=== PATIENT | female | born 1990 | race African-American/Black ===

== ENCOUNTER 2017-07-10 07:04 | Emergency (ER) | payer SELFPAY ==
[2017-07-10 07:57] LABS: Bilirubin Negative (Negative); Blood, Urine Trace (Negative); Glucose, Urine (Dipstick) Negative (Negative); Ketone, Urine Negative (Negative); Nitrite Negative (Negative); Protein, Urine (Dipstick) Negative (Neg-Trace); Urobilinogen 0.2 mg/dL (0.2-1.0)
[2017-07-10 08:00] LABS: Bacteria/HPF Rare-Few HPF (None Seen); Hyaline Casts/LPF 4-6 HYALINE CAST LPF (0-3 Hyaline); WBC/HPF 21-50 HPF (0-3)
--- NOTE | 2017-07-10 09:10 | ULT ---
COMPLETE OBSTETRICAL ULTRASOUND: INDICATION: History of pelvic pain. FINDINGS: There is a single live intrauterine gestation in vertex presentation. Cardiac activity is noted at 33 b.p.m. FERAIN appears within normal limits. The placenta is posterior in location without evidence of previa. Limited visualization of the survey appeared within normal limits. The kidneys, stomach, diaphragm, bladder, and cord insertion appear within normal limits. The average gestation age by ultrasound is 14 weeks and 5 days, estimated due date of 01/03/13. This corresponds to the cl inical age of 14 weeks and 3 days and estimated due date of 01/05/18. IMPRESSION: 1. Single live intrauterine gestation with size and dates as above. 2. Followup examination in 2-3 weeks is recommended for full survey. POS: [facility]
== END 2017-07-10 09:17 | disposition home or self-care (01) ==
LOC: ERS 07:04
DX: O99.611 Diseases of the digestive system complicating pregnancy, first trimester (principal); K21.9 Gastro-esophageal reflux disease without esophagitis; O99.89 Other specified diseases and conditions complicating pregnancy, childbirth and the puerperium; R82.71 Bacteriuria; O99.011 Anemia complicating pregnancy, first trimester; O99.281 Endocrine, nutritional and metabolic diseases complicating pregnancy, first trimester; E05.90 Thyrotoxicosis, unspecified without thyrotoxic crisis or storm; Z87.891 Personal history of nicotine dependence; Z3A.14 14 weeks gestation of pregnancy
CPT/HCPCS: 36415; 76805; 81003; 81015; 81025; 84702; 87086

== ENCOUNTER 2017-07-17 15:52 | Emergency (ER) | payer MEDICAID ==
[2017-07-17] MEDS ORDERED: Ondansetron ODT 4 MG TAB ONE (16:16)
[2017-07-17] MEDS ORDERED: Metoclopramide HCl 10 MG/2 ML VIAL ONE (16:59)
[2017-07-17] MEDS ORDERED: Acetaminophen 500 MG TAB ONE (17:27)
== END 2017-07-17 18:41 | disposition home or self-care (01) ==
LOC: ERS 15:52
DX: O21.0 Mild hyperemesis gravidarum (principal); O99.282 Endocrine, nutritional and metabolic diseases complicating pregnancy, second trimester; Z3A.15 15 weeks gestation of pregnancy
CPT/HCPCS: 96365; 99283; J2765; Q0162

== ENCOUNTER 2017-07-17 21:44 | Emergency (ER) | payer MEDICAID | END 2017-07-17 22:38 | disposition home or self-care (01) | LOC: ERS 21:44 | DX: O21.9 Vomiting of pregnancy, unspecified (principal); E05.90 Thyrotoxicosis, unspecified without thyrotoxic crisis or storm; O99.282 Endocrine, nutritional and metabolic diseases complicating pregnancy, second trimester; Z87.891 Personal history of nicotine dependence; Z79.899 Other long term (current) drug therapy; Z3A.15 15 weeks gestation of pregnancy ==

== ENCOUNTER 2017-07-27 22:22 | Emergency (ER) | payer MEDICAID, OTHER ==
[2017-07-28] MEDS ORDERED: Acetaminophen 500 MG TAB ONE (00:47)
--- NOTE | 2017-07-28 08:09 | RAD ---
RIGHT ANKLE 3 VIEWS: HISTORY: Right foot pain. Injury. COMPARISON: None. FINDINGS: No fracture. No malalignment. Mild medial malleolar edema. IMPRESSION: No acute fracture or malalignment. POS: [facility]
== END 2017-07-28 01:40 | disposition home or self-care (01) ==
LOC: ERS 22:22
DX: O9A.212 Injury, poisoning and certain other consequences of external causes complicating pregnancy, second trimester (principal); S93.402A Sprain of unspecified ligament of left ankle, initial encounter; O99.282 Endocrine, nutritional and metabolic diseases complicating pregnancy, second trimester; E05.90 Thyrotoxicosis, unspecified without thyrotoxic crisis or storm; Z3A.17 17 weeks gestation of pregnancy; Z87.891 Personal history of nicotine dependence; X50.1XXA Overexertion from prolonged static or awkward postures, initial encounter

== ENCOUNTER 2017-07-29 08:59 | Emergency (ER) | payer MEDICAID, OTHER ==
[2017-07-29 09:35] LABS: #Eosinphils 0.1 thou/uL (0.0-0.7); #Lymphocytes 2.2 thou/uL (1.20-3.40); #Monocytes 0.7 thou/uL (0.11-0.59); #Neutrophils 10.6 thou/uL (1.40-6.50); %Basophils 0.3 % (0.0-1.0); %Eosinophils 0.7 % (0.0-10.0); %Lymphocytes 16.3 % (21.0-51.0); Hematocrit 36.6 % (36.0-47.0); Mean Platelet Volume 7.9 fL (7.4-10.4); Red Blood Cell (RBC) Count 3.97 mill/uL (4.20-5.40); White Blood Cell (WBC) Count 13.7 thou/uL (4.8-10.8)
[2017-07-29 09:53] LABS: ALT (SGPT) 43 U/L (8-55); AST (SGOT) 25 U/L (5-34); Alkaline Phosphatase 50 U/L (40-150); Anion Gap 10 mmol/L (10-20); BUN (Urea Nitrogen) 6 mg/dL (7.0-18.7); Bilirubin, Total 0.5 mg/dL (0.2-1.2); Calc. Creatinine Clearance 0 mL/min (70-130); Calcium 8.8 mg/dL (7.8-10.44); Carbon Dioxide 21 mmol/L (22-29); Chloride 108 mmol/L (98-107); Estimated GFR-MDRD Greater than 90; Globulin 3.3 g/dL (2.4-3.5); Lipase 18 U/L (8-78); Protein, Total 6.5 g/dL (6.0-8.3)
[2017-07-29 10:29] LABS: Bilirubin Negative (Negative); Blood, Urine Trace (Negative); Glucose, Urine (Dipstick) Negative (Negative); Ketone, Urine Negative (Negative); Nitrite Negative (Negative); Protein, Urine (Dipstick) Negative (Neg-Trace)
[2017-07-29 10:31] LABS: Bacteria/HPF None Seen HPF (None Seen); Hyaline Casts/LPF 0-3 HYALINE CAST LPF (0-3 Hyaline); Squamous Epithelial 0-3 HPF (0-3); WBC/HPF 21-50 HPF (0-3)
[2017-07-29 10:45] LABS: Yeast-All Forms None Seen HPF (None Seen)
[2017-07-29] MEDS ORDERED: Lidocaine 1% PF 5 ML VIAL ONE (11:40)
[2017-07-29] MEDS ORDERED: cefTRIAXone\\ROCEPHIN 1 GM VIAL ONE (11:40)
[2017-07-29] MEDS ORDERED: Potassium Chloride 20 MEQ TAB ONE (12:10)
== END 2017-07-29 12:27 | disposition home or self-care (01) ==
LOC: ERS 08:59
DX: O23.42 Unspecified infection of urinary tract in pregnancy, second trimester (principal); O99.282 Endocrine, nutritional and metabolic diseases complicating pregnancy, second trimester; E87.6 Hypokalemia; E05.90 Thyrotoxicosis, unspecified without thyrotoxic crisis or storm; Z87.891 Personal history of nicotine dependence; Z79.899 Other long term (current) drug therapy; Z3A.17 17 weeks gestation of pregnancy
CPT/HCPCS: 36415; 80053; 81003; 81015; 83690; 84702; 85025; 96372; J0696; J2001

== ENCOUNTER 2017-10-13 12:50 | Day surgery (SDC) | payer MEDICAID, OTHER ==
[2017-10-13 13:36] VITALS: BMI 36.0
== END 2017-10-13 15:00 | disposition home or self-care (01) ==
LOC: L&D/OP 12:50
PROVIDERS: ATTEND Emergency Medicine
DX: O99.89 Other specified diseases and conditions complicating pregnancy, childbirth and the puerperium (principal); M54.9 Dorsalgia, unspecified; R10.30 Lower abdominal pain, unspecified; O99.283 Endocrine, nutritional and metabolic diseases complicating pregnancy, third trimester; E05.90 Thyrotoxicosis, unspecified without thyrotoxic crisis or storm; Z3A.28 28 weeks gestation of pregnancy; Z79.899 Other long term (current) drug therapy; Z87.891 Personal history of nicotine dependence
CPT/HCPCS: 99282

== ENCOUNTER 2017-11-15 23:13 | Emergency (ER) | payer OTHER ==
--- NOTE | 2017-11-15 23:58 | RAD ---
PORTABLE CHEST: 11/15/17 HISTORY: Cough. Lung ansari are clear. No infiltrate seen. Heart and mediastinum unremarkable. IMPRESSION: No evidence of acute process. POS: [facility]
[2017-11-16] MEDS ORDERED: Mag-Al 1200 mg/1200 mg/30 ML UDCUP ONE (00:46)
[2017-11-16] MEDS ORDERED: Lidocaine Viscous Sol 2% 15 ml UD Cup ONE (00:46)
[2017-11-16 01:25] LABS: Bilirubin Small (Negative); Blood, Urine Trace (Negative); Clarity CLOUDY (Clear); Glucose, Urine (Dipstick) Negative (Negative); Leukocyte Large (Negative); Nitrite Negative (Negative); Protein, Urine (Dipstick) 30 mg/dL (Neg-Trace); Specific Gravity, Urine 1.016 (1.002-1.036)
[2017-11-16 01:27] LABS: Bacteria/HPF None Seen HPF (None Seen); Squamous Epithelial 0-3 HPF (0-3); WBC/HPF 21-50 HPF (0-3)
[2017-11-16 01:32] LABS: Yeast-AUWi Flag 45.8 (0-25.0)
[2017-11-16 01:35] LABS: Hyaline Casts/LPF 0-3 HYALINE CAST LPF (0-3 Hyaline); RBC/HPF 0-3 HPF (0-3); Trichomonas/HPF 1+ HPF (None Seen)
[2017-11-16 01:36] LABS: Yeast-All Forms None Seen HPF (None Seen)
[2017-11-16] MEDS ORDERED: metroNIDAZOLE 250 MG TAB ONE ×2 (02:15)
[2017-11-16] MEDS ORDERED: metroNIDAZOLE 500 MG TAB PO SCH (02:30)
== END 2017-11-16 02:24 | disposition home or self-care (01) ==
LOC: ERS 23:13
DX: O99.613 Diseases of the digestive system complicating pregnancy, third trimester (principal); K21.9 Gastro-esophageal reflux disease without esophagitis; O21.9 Vomiting of pregnancy, unspecified; O98.313 Other infections with a predominantly sexual mode of transmission complicating pregnancy, third trimester; A59.9 Trichomoniasis, unspecified; O99.283 Endocrine, nutritional and metabolic diseases complicating pregnancy, third trimester; E05.90 Thyrotoxicosis, unspecified without thyrotoxic crisis or storm; Z79.899 Other long term (current) drug therapy; Z3A.32 32 weeks gestation of pregnancy
CPT/HCPCS: 71045; 81003; 81015; 87086; 93005

== ENCOUNTER 2017-11-28 13:37 | Day surgery (SDC) | payer OTHER ==
[2017-11-28 14:14] VITALS: BP 121/82; TEMP 98.2; BMI 34.0
[2017-11-28] MEDS ORDERED: Acetaminophen 500 MG TAB PO SCH (15:15)
[2017-11-28 16:18] LABS: Blood, Urine Large (Negative); Clarity CLOUDY (Clear); Glucose, Urine (Dipstick) Negative (Negative); Protein, Urine (Dipstick) 30 mg/dL (Neg-Trace); Specific Gravity, Urine 1.021 (1.002-1.036); pH, Urine 6.5 (5.0-9.0)
[2017-11-28 16:22] LABS: Bacteria/HPF None Seen HPF (None Seen); RBC/HPF GREATER THAN 50-TNTC HPF (0-3)
[2017-11-28 16:26] LABS: Bilirubin Unable to Interpret (Negative); Leukocyte Small (Negative); Nitrite Negative (Negative); Pathc Cast-AUWi Flag 4.74 (0-2.49)
[2017-11-28 16:37] LABS: Hyaline Casts/LPF 0-3 HYALINE CAST LPF (0-3 Hyaline); Other Casts/LPF None Seen LPF (0-3 Hyaline); Transitional Epithelial 0-3 HPF (0-3)
--- NOTE | 2017-11-28 17:13 | PDOC.LDPN ---
Labor & Delivery Progress Note - Subjective Subjective: other (Vaginal discharge, some spotting. ) - Objective Vital signs reviewed and normal: yes General: NAD, resting Uterine fundus: non tender SVE: visually closed/thick on speculum exam. Other exam findings: Thick whitish discharge in vaginal/cervical area. no CMT,
--- NOTE | 2017-11-28 17:20 | PDOC.LDHP ---
Labor and Delivery H&P Chief complaint: other (vaginal discharge.) HPI: 27 yo at 34+4 by 9 week sono. She is here for vaginal discharge with some bloody wipes. She has no further bleeding. normal movements. She has some back and suprabupic pain. no loss of fluid. no fever or chills. Current gestational age (weeks): 34 (+4) Due date: 01/05/18 Dating criteria: last menstrual period, first trimester ultrasound Grav: 3 Para: 0 (0110) OB History Details: 1. hx of loss of pregancy at 17 and 23 weeks. 2. Short cervix 2.6 cm, s/p betamethasone on 11/13 at 32 weeks. Current complications: none Current medications: pre-meghan vitamins, other (aspirin) Previous surgical history: none Social history: none - Physical Exam Abnormal vital signs: HR 102 initially General: NAD Heart: RRR Lungs: CTAB Abdomen: NTTP (No CVA tenderness) Extremeties: no edema FHT: category 1, variability present [place] contractions every: uterine irritability, +accels, periods of witnessed maternal HR on tracing - Vaginal Exam cm dilated: 0 (Visually closed, thick whitish discharge. no CMT. no lesions) - OB Labs Blood type: O RH: positive Antibody Screen: negative HIV: negative RPR: negative HEPSAg: negative 1 hour GCT: unknown GBS: unknown Urine drug screen: not done Rubella: immune Additional Labs: Recent TSH 0.3, FT4 1.4 - Assessment Lower uterine pelvic pain- With negative VP3, and UA most consistent with dehydration. Exam not consistent with stones with no tenderness to palpation in abdomen or CVA. Patient is feeling better at discharge. Likely some round ligament pain with dehydration. Will dishcarge with plan for lots of oral hydration and tylenol for pain. Recommend patient follows up at [facility] in 2-3 days. Will Follow patients urine culture <Edward Fleming - Last Filed: 11/28/17 18:26> <Adele Lamas - Last Filed: 11/28/17 18:38> Allergies/Adverse Reactions: Allergies Allergy/AdvReac Type Severity Reaction Status Date / Time No Known Allergies Allergy Verified 11/28/17 14:15 Attending Addendum - Attending Addendum Date/Time: 02/21/18 1836 I personally evaluated the patient and discussed the management with Dr. Fleming I agree with the History, Examination, Assessment and Plan documented above with any addition or exceptions noted below- Single episode of spotting while wiping. No abdominal pain. Intermittent back pain. Afebrile VSS. Category 1 FHTs. VP3 negative; no bleeding on SSE. D/c home with precautions. Follow-up @ [facility]. <Adele Lamas - Last Filed: 11/28/17 18:38>
== END 2017-11-28 18:30 | disposition home or self-care (01) ==
LOC: L&D/OP 13:37
PROVIDERS: ATTEND Family Medicine
DX: O99.89 Other specified diseases and conditions complicating pregnancy, childbirth and the puerperium (principal); R10.2 Pelvic and perineal pain; E86.0 Dehydration; Z79.899 Other long term (current) drug therapy; Z3A.34 34 weeks gestation of pregnancy; Z87.59 Personal history of other complications of pregnancy, childbirth and the puerperium
CPT/HCPCS: 51701; 59025; 81001; 87086; 87480; 87510; 87660; 99284

== ENCOUNTER 2017-12-04 16:17 | Inpatient (IN) | payer OTHER ==
[2017-12-04 16:51] VITALS: BMI 33.6
--- NOTE | 2017-12-04 17:26 | PDOC.LDHP ---
Labor and Delivery H&P Chief complaint: other (Elevated BP in clinic, Persistent N/V) HPI: 27 year old at 35.3 wks based on LMP c/w 9.6 wk sono presents secondary to elevated BP in clinic with 2 separate readings of 130/90's. Patient also has persistent N/V which has been present throughout the duration of her . She was initially taking zofran which was not effective, so she was transitioned over to diclegis. She was also recently started on pepcid. Nothing has been very effective. She has lost upwards of 10 pounds during this and is being monitored. Additionally, she has a history of two 2nd trimester IUFD at 17 and 23 weeks. TFTs and APAS work up were negative. Patient denies any vaginal bleeding, vaginal discharge or LOF. She denies headache, right upper quadrant pain, or swelling. Current gestational age (weeks): 35 (35.3) Due date: 01/05/18 Dating criteria: last menstrual period, first trimester ultrasound Grav: 3 Para: 0 OB History Details: 1. Hx 2nd trimester IUFD at 17 and 23 weeks. TFTs and APAS workup negative. 2. Short cervix at 2.6 cm, s/p betamethasone on 11/13 at 32 weeks 3. 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 Normal TFTs and thyroid antibodies Current complications: IUGR (Concern for IUGR) Current medications: pre-meghan vitamins Previous surgical history: none Social history: other (cocaine positive on prior UDS, patient denied cocaine use at that time) - Physical Exam Vital signs reviewed and normal: yes Abnormal vital signs: BP 146/74 General: other (Actively vomiting) Heart: RRR Lungs: nonlabored breathing Abdomen: NTTP Extremeties: no edema FHT: category 1, variability present [place] contractions every: q3 minutes, maternal heart tracing witnessed on strip - OB Labs Blood type: O RH: positive Antibody Screen: negative HIV: negative RPR: negative HEPSAg: negative 1 hour GCT: unknown GBS: unknown Rubella: immune - Assessment Patient presents for evaluation of elevated BP's and persistent N/V. - Plan Plan: observation in L&D -: Elevated BP's without diagnosis of gHTN or preeclampsia - Initiate preeclampsia workup to include CBC, CMP, UA, Urine protein and urine creatinine - No symptoms of preeclampsia at this time - Continue to monitor BP, treat if SBP > 160 Hx of IUFD in 2nd trimester x2 - Thyroid storm after IUFD, TFTs and thyroid antibodies have been normal. [facility] has recommended weekly NST's and BPP'suntil 36 weeks and biweekly NST/BPP thereafter - Will obtain BPP today along with biometry to assess growth - PT/PTT/INR pending Short cervix length - 2.6 cm - s/p betamethasone on 11/13 at 32 weeks Persistent N/V - Patient currently taking diclegis and pepcid - Will give zofran ODT and pepcid - Lipase pending <Jie Hadley - Last Filed: 12/04/17 18:12> <Lopez Conn - Last Filed: 12/04/17 21:11> Allergies/Adverse Reactions: Allergies Allergy/AdvReac Type Severity Reaction Status Date / Time No Known Allergies Allergy Verified 11/28/17 14:15 Attending Addendum - Attending Addendum Date/Time: 12/04/172108 I personally evaluated the patient and discussed the management with Dr. Hadley. I agree with the History, Examination, Assessment and Plan documented above with any addition or exceptions noted below. Elevated bili and LFTs -wide ddx: AFLP, HELLP/preE with severe features (no elevated BPs), GB disease, hepatitis -RUQ sono, hep panel, repeat labs in 6 hours Elevated BP -x1 while vomiting, normal thereafter -await urine studies -UA 9.1 Dehydration -IVFB Will complete workup and consult as appropriate. <Lopez Conn - Last Filed: 12/04/17 21:11>
[2017-12-04] MEDS ORDERED: Ondansetron ODT 8 MG TAB SL PRN (17:39)
[2017-12-04] MEDS ORDERED: Famotidine 20 MG TAB PO SCH (18:15)
[2017-12-04 18:48] LABS: #Lymphocytes 2.6 thou/uL (1.20-3.40); #Monocytes 0.5 thou/uL (0.11-0.59); #Neutrophils 9.1 thou/uL (1.40-6.50); %Basophils 0.1 % (0.0-1.0); %Eosinophils 0.4 % (0.0-10.0); %Lymphocytes 21.4 % (21.0-51.0); %Monocytes 4.1 % (0.0-10.0); Hemoglobin 12.6 g/dL (12.0-16.0); Mean Corpuscular HGB CONC 33.4 g/dL (32.0-36.0); Mean Corpuscular Hemoglobin 29.8 pg (27.0-31.0); Mean Corpuscular Volume 89.3 fl (81.0-99.0); Mean Platelet Volume 8.9 fL (7.4-10.4); Platelet Count 247 thou/uL (130-400); RBC Distribution Width 13.3 % (11.5-14.5); Red Blood Cell (RBC) Count 4.23 mill/uL (4.20-5.40); White Blood Cell (WBC) Count 12.2 thou/uL (4.8-10.8)
[2017-12-04 18:54] LABS: PTT 28.2 SEC (22.9-36.1); Prothrombin Time 13.1 SEC (12.0-14.7)
[2017-12-04 19:11] LABS: ALT (SGPT) 173 U/L (8-55); AST (SGOT) 175 U/L (5-34); Albumin 3.2 g/dL (3.5-5.0); Alkaline Phosphatase 216 U/L (40-150); Anion Gap 17 mmol/L (10-20); BUN (Urea Nitrogen) 7 mg/dL (7.0-18.7); Bilirubin, Total 1.3 mg/dL (0.2-1.2); Calc. Creatinine Clearance 163 mL/min (70-130); Calcium 9.1 mg/dL (7.8-10.44); Carbon Dioxide 26 mmol/L (22-29); Chloride 100 mmol/L (98-107); Estimated GFR-MDRD Greater than 90; Glucose 75 mg/dL (70-105); Protein, Total 7.2 g/dL (6.0-8.3); Sodium 140 mmol/L (136-145); Uric Acid 9.1 mg/dL (2.6-6.0)
[2017-12-04 19:20] LABS: Potassium 2.9 mmol/L (3.5-5.1)
--- NOTE | 2017-12-04 20:08 | ULT ---
OBSTETRIC SONOGRAM SONOGRAPHIC BIOPHYSICAL PROFILE EXAM 12/04/17 HISTORY: Third trimester . Previous spontaneous abortions. Thyroid storm. FINDINGS: Multiple transabdominal sonographic views of the gravid uterus show an intrauterine gestation in ceph alic presentation. The cervix is predominantly obscured by ossification of the cranium. Grade II placenta is posterior and fundal. Advanced age limits anatomic detail. Urinary bladder is we ll distended. Heart motion is demonstrated at 122 beats per minute. Amniotic fluid index is 7.8 with a 3.8 cm pocket in the right upper quadrant. Measurements are as follows: Biparietal diameter 36 weeks, 5 days Head circumference 36 weeks, 2 days Abdominal circumference 33 weeks, 1 day Femur length 34 weeks, 3 days Estimated weight is 2366 grams (5 lb. 3 oz). Good tone and breathing movements and gross movements were demonstrated at sonography. IMPRESSION: 1. Single viable intrauterine gestation with estimated gestational age based on today's sonogram of 35 weeks, 0 days. 2. Sonographic biophysical profile score is 8/8. POS: [facility]
[2017-12-04] MEDS ORDERED: Ondansetron HCl/PF 4 MG/2 ML Vial IVP PRN (20:19)
[2017-12-04] MEDS ORDERED: Promethazine HCl 25 MG/ML VIAL IM PRN (20:19)
--- NOTE | 2017-12-04 20:33 | PDOC.LDPN ---
Labor & Delivery Progress Note - Subjective Subjective: other (N/v. No headache) - Objective Vital signs reviewed and normal: yes General: other (No contractions. Significant n/v) Uterine fundus: non tender FHT: category 1, acceleration absent, absent or minimal variables [place] contractions every: rare -: Pts labs are concerning for billiary disease vs HELLP with billiary disease being most likely given normal BP. RUQ US is pending. LDH, haptoglobin, peripheral smear, urine protein are all pending. IVF - will bolus 1L LR, then maint fluids Replace K Surg consult pending US result. monitoring Monitor maternal vitals <Elias Christiansen - Last Filed: 12/04/17 20:30> Attending Addendum - Attending Addendum Date/Time: 12/04/17 3208 I personally evaluated the patient and discussed the management with Dr. Christiansen and Elinor. I agree with the History, Examination, Assessment and Plan documented above with any addition or exceptions noted below. She is now 3 cm and paula q2m. Labs reviewed. No elevated pressures or thrombocytopenia. Urine still pending. No elevated BP's. Recheck cervix in 2 hours. I have paged M, waiting for their call back. <Lopez Conn - Last Filed: 12/04/17 23:22>
[2017-12-04] MEDS ORDERED: Lactated Ringer's 1,000 ML IV SCH (20:45)
[2017-12-04 20:54] LABS: HBCM Index 0.12 S/CO (0-0.79); HBSAg Index 0.14 S/CO (0-0.99); Hep A IgM AB Non-Reactive (NonReactive); Hep A IgM S/CO 0.17 S/CO (0-0.79); Hep B Surf Ag Non-Reactive S/CO (NonReactive); Hep C IgG Ab Non-Reactive (NonReactive); Hep C Index 0.09 S/CO (0-0.79); Hepatitis B Core IGM Abs Non-Reactive (NonReactive)
[2017-12-04 21:06] LABS: Free T4 (Free Thyroxine) 1.32 ng/dL (0.70-1.48); Thyroid Stimulating Hormone 0.3323 uIU/mL (0.35-4.94)
--- NOTE | 2017-12-04 21:25 | ULT ---
SONOGRAM RIGHT UPPER QUADRANT 12/04/17 HISTORY: Nausea, vomiting. Abdominal pain. FINDINGS: Echogenic sludge layers within the dependent portion of the gallbladder lumen. There is no gallbladde r wall thickening or pericholecystic fluid. Common duct is 0.3 cm diameter. Liver is unremarkable wit hout focal mass or intrahepatic biliary dilatation. No free fluid is apparent. The partially visualiz ed right kidney shows distention of the renal collecting system. IMPRESSION: 1. Cholelithiasis. No evidence of acute biliary obstruction. 2. Right hydronephrosis. In the setting of , this is likely related to hydronephrosis o f . POS: [facility]
[2017-12-04] MEDS ORDERED: Potassium Chloride 40 MEQ in Sodium Chloride 0.9% 250 ML 250 ML IVPB SCH (21:30)
[2017-12-04] MEDS: Lactated Ringer's 1,000 ML IV SCH (21:44)
[2017-12-04 21:47] LABS: Amphetamine Not Detected (NotDetected); Barbiturates Screen Not Detected (NotDetected); Benzodiazepine Screen Not Detected (NotDetected); Cocaine Metabolite Screen Not Detected (NotDetected); Medtox Control Line Valid? VALID (VALID); Medtox Reader # READER 4; Methadone Not Detected (NotDetected); Methamphetamine Not Detected (NotDetected); Opiate Screen Not Detected (NotDetected); Oxycodone Screen Not Detected (NotDetected); Phencyclidine (PCP) Not Detected (NotDetected); THC/Cannabinoid Screen Not Detected (NotDetected); Tricyclic Screen Not Detected (NotDetected)
[2017-12-04 21:48] LABS: PLT Morphology Comment Appears Adequate
[2017-12-04 23:56] LABS: Creatinine, Urine Greater than 430.00 mg/dL (47-110); Protein, Urine Random Quant 197 mg/dL
--- NOTE | 2017-12-05 01:11 | PDOC.LDPN ---
Labor & Delivery Progress Note - Subjective Subjective: comfortable, painful contractions - Objective Vital signs reviewed and normal: yes General: NAD, resting FHT: category 2, late decelerations [place] contractions every: q2-3m Plan: other (Discussed in detail with MFM. In light of clinical picture they recommend induction with early AROM and internals. Magnesium at my discretion. )
[2017-12-05] MEDS ORDERED: Calcium Gluc 4.6 MEQ/10 ML (100 MG/ML) SLOW IVP PRN (01:23)
[2017-12-05] MEDS ORDERED: Penicillin G Potassium 5 MILL.UNITS in Sodium Chloride 0.9% 100 ML IVPB SCH (01:30)
[2017-12-05] MEDS ORDERED: Magnesium Sulfate 20 GM/WATER 500 ML BAG IVPB SCH (01:30)
[2017-12-05] MEDS ORDERED: Magnesium Sulfate 20 gm/500 ml 20 GM/500 ML BAG IVPB SCH (01:30)
[2017-12-05] MEDS ORDERED: Mag-Al 1200 mg/1200 mg/30 ML UDCUP PO PRN (02:03)
[2017-12-05 02:22] LABS: Hemoglobin 12.6 g/dL (12.0-16.0); Mean Corpuscular HGB CONC 32.2 g/dL (32.0-36.0); Mean Corpuscular Hemoglobin 29.6 pg (27.0-31.0); Mean Corpuscular Volume 91.9 fl (81.0-99.0); Mean Platelet Volume 10.7 fL (7.4-10.4); Platelet Count 271 thou/uL (130-400); RBC Distribution Width 13.5 % (11.5-14.5); Red Blood Cell (RBC) Count 4.27 mill/uL (4.20-5.40); White Blood Cell (WBC) Count 12.5 thou/uL (4.8-10.8)
[2017-12-05 02:23] LABS: ALT (SGPT) 142 U/L (8-55); AST (SGOT) 146 U/L (5-34); Albumin 2.7 g/dL (3.5-5.0); Alkaline Phosphatase 179 U/L (40-150); Anion Gap 14 mmol/L (10-20); BUN (Urea Nitrogen) 7 mg/dL (7.0-18.7); Bilirubin, Direct 0.8 mg/dL (0.1-0.3); Bilirubin, Total 1.2 mg/dL (0.2-1.2); Calc. Creatinine Clearance 183 mL/min (70-130); Calcium 8.6 mg/dL (7.8-10.44); Carbon Dioxide 26 mmol/L (22-29); Chloride 102 mmol/L (98-107); Estimated GFR-MDRD Greater than 90; Glucose 67 mg/dL (70-105); Protein, Total 5.9 g/dL (6.0-8.3); Sodium 139 mmol/L (136-145)
--- NOTE | 2017-12-05 02:33 | PDOC.LDPN ---
Labor & Delivery Progress Note - Subjective Subjective: painful contractions (denies headache/vision changes/RUQ pain. Some reflux symptoms) - Objective Vital signs reviewed and normal: yes General: resting Uterine fundus: non tender SVE: 3 Dilation: 50 Station: -2 FHT: category 1, variability present [place] contractions every: q3m Other exam findings: DTRs 2+, no clonus AROM: clear fluid IUPC placed: yes FSE placed: yes Plan: other (Early AROM with interns as directed by MFM. Pain control as requested. Pitocin pending next check. Mg started, 4g load then 1g qh, levels q4h as she is oliguric. Strict I&Os. Neurochecks and seizure precautions. Dr. Lesia carbajal.)
[2017-12-05] MEDS: Ondansetron ODT 8 MG TAB SL SCH (02:34)
[2017-12-05] MEDS ORDERED: Potassium Chloride 40 MEQ in Sodium Chloride 0.9% 250 ML 250 ML IVPB SCH (03:00)
[2017-12-05 03:09] LABS: HBSAg Index 0.14 S/CO (0-0.99); HIV (1/2) Antibody/Antigen Non-Reactive (NonReactive); HIV 1/2 INDEX 0.16 S/CO (<1.00); Hep B Surf Ag Non-Reactive S/CO (NonReactive)
[2017-12-05 03:51] LABS: Syphilis Antibody Nonreactive (Nonreactive); Syphilis Antibody Index 0.04 S/CO (<1.00 Non-Reactive)
[2017-12-05] MEDS ORDERED: Penicillin G 2.5 MILL.units 2.5 MILL.UNITS in Premix Bag 1 BAG IVPB SCH (05:00)
--- NOTE | 2017-12-05 05:53 | PDOC.LDPN ---
Labor & Delivery Progress Note - Subjective Subjective: painful contractions - Objective Vital signs reviewed and normal: yes General: breathing through contractions Uterine fundus: palpable contractions Effacement: 50% Station: 0 FHT: category 2 (Baseline 100 BPM), acceleration absent, absent or minimal variables [place] contractions every: 3 AROM: clear fluid IUPC placed: yes FSE placed: yes Resuscitative measures: maternal oxygen, maternal IV fluids, maternal position change Plan: continue plan of care, resuscitative measures -: Mag check - no headaches or blurry vision - Patellar reflexes are 4+ - Mg level due at 0630 Persistent cat II strip- bradycardia w/o decels or accels. HR not responsive to scalp stimulation. C section indicated at this point. <Elias Christiansen - Last Filed: 12/05/17 05:46> Attending Addendum - Attending Addendum Date/Time: 12/05/17 0556 I personally evaluated the patient and discussed the management with Dr. Christiansen and Elinor. I agree with the History, Examination, Assessment and Plan documented above with any addition or exceptions noted below. 110, min-mod aundrea, no recent accels and no 15x15 to scalp stim Ctx q3-4m 4/50/-2, IUPC and scalp in place A/P: 27 y/o @ 35w3d with preE with severe features vs biliary path vs other -In light of neg rxn to FSE and bradycardia will proceed to OR as soon as they are available -anesthesia notified GBS+ -continue PCN, only 1 dose so far h/o thyroid storm -normal TFTs <Lopez Conn - Last Filed: 12/05/17 05:59>
[2017-12-05] MEDS ORDERED: CEFAZOLIN/Water 2 GM/20 ML SYRINGE ONE (06:05)
[2017-12-05] MEDS ORDERED: Bicitra 30 ML UDCUP ONE (06:06)
[2017-12-05] MEDS ORDERED: Morphine PF 1 MG/ML SYR ONE (06:18)
[2017-12-05] MEDS ORDERED: ePHEDrine/0.9% NaCl/PF SYRINGE 50 mg/10 ml ONE (06:19)
[2017-12-05] MEDS ORDERED: PHENYLEPHRINE-NS 100 MCG/ML 10 ML SYRINGE ONE ×2 (06:19→16:19)
[2017-12-05] MEDS ORDERED: Ondansetron HCl/PF 4 MG/2 ML Vial ONE ×2 (06:19→16:19)
[2017-12-05] MEDS ORDERED: Dexamethasone 4 mg/ml Vial ONE (06:19)
[2017-12-05] MEDS ORDERED: Ketorolac Tromethamine 30 MG/ML VIAL ONE (06:19)
[2017-12-05] MEDS ORDERED: Lidocaine 1% PF 5 ML VIAL ONE (06:19)
[2017-12-05] MEDS ORDERED: Oxytocin 10 UNITS/ML VIAL ONE (06:19)
[2017-12-05 07:10] LABS: Actual Bicarbonate (HCO3a) 27.6 mEq/L (22-26); Base Excess (BEa) 0.7 mEq/L (0 (+/-) 2.5)
[2017-12-05] MEDS ORDERED: Promethazine HCl 25 MG SUPP PR PRN ×2 (07:24→07:47)
[2017-12-05] MEDS ORDERED: Eucerin (Mineral Oil/Petrolatum,White) 30 gm Jar TOP PRN ×2 (07:24→07:47)
[2017-12-05] MEDS ORDERED: Ondansetron HCl/PF 4 MG/2 ML Vial IVP PRN ×3 (07:24→07:48)
[2017-12-05] MEDS ORDERED: Naloxone HCl 0.4 mg/ml Vial IVP PRN ×4 (07:24→07:47)
[2017-12-05] MEDS ORDERED: Naloxone HCl 0.4 mg/ml Vial IV PRN ×2 (07:24→07:47)
[2017-12-05] MEDS ORDERED: diphenhydrAMINE 50 MG/ML VIAL IVP PRN ×2 (07:24→07:47)
[2017-12-05] MEDS ORDERED: Ketorolac Tromethamine 30 MG/ML VIAL IVP PRN ×2 (07:24→07:47)
[2017-12-05] MEDS ORDERED: Promethazine HCl 25 MG/ML VIAL IM PRN ×2 (07:24→07:47)
--- NOTE | 2017-12-05 07:29 | PDOC.PP ---
Post Progress Note Post Day #: 0 Subjective: Patient is seen in recovery from . She is drowsy and in moderate pain. She denies MATOS, SOB at this time. Nurse reports poor UOP of about 30cc/ hr. PO intake tolerated: no Flatus: no Ambulation: no Vital Signs (12 hours) Temp Pulse Resp BP 12/05/17 02:00 98.6 F 88 18 12/05/17 01:30 78 18 107/72 12/05/17 00:10 116 H 22 H 128/100 H 12/04/17 23:15 88 18 119/82 12/04/17 22:03 91 18 104/70 12/04/17 20:40 98.4 F 82 18 118/70 Weight Admit Weight 88.904 kg Weight 88.904 kg - Physical Examination General: NAD Neurological: no gross focal deficits Psychiatric: A&Ox3, normal affect Result Diagrams: 12/04/17 21:54 12/05/17 10:53 Additional Labs: Post Labs Hep Bs Antigen Non-Reactive S/CO (NonReactive) 12/04/17 21:54 (3) delivery Status: Acute Comment: 27yo @ 35.3 presented with N/V, elevated pressures, and dizziness. Found to elevated liver enzymes with negative RUQ u/ s. MFM was consulted and recommeneded delivery. Patient delivered AGA F via Csection earlier this morning. Continue Mg ggt until LFT's normalize. Recheck LFT's and coags at 1200. Concern with poor UOP. Mg level pending. Continue to monitor VS and transition to care after Mg discontinued. (4) Hyperemesis gravidarum Code(s): O21.0 - MILD HYPEREMESIS GRAVIDARUM Status: Acute (5) Hyperthyroidism Code(s): E05.90 - THYROTOXICOSIS, UNSP WITHOUT THYROTOXIC CRISIS OR STORM Status: Acute (6) Hypokalemia Code(s): E87.6 - HYPOKALEMIA Status: Acute <Latrice Meza - Last Filed: 12/05/17 11:40> Vital Signs (12 hours) Temp Pulse Resp 12/06/17 08:00 97.8 F 70 16 12/06/17 04:00 97.8 F 70 16 12/06/17 00:51 97.8 F 70 16 Weight Admit Weight 88.904 kg Weight 88.904 kg Result Diagrams: 12/06/17 03:07 12/06/17 03:07 Additional Labs: Post Labs Hep Bs Antigen Non-Reactive S/CO (NonReactive) 12/04/17 21:54 <Phan Mcconnell - Last Filed: 12/06/17 12:30> Attending Addendum - Attending Addendum Date/Time: 12/06/17 1219 I personally evaluated the patient and discussed the management with Dr. Meza, I agree with the History, Examination, Assessment and Plan documented above with any addition or exceptions noted below. Pt. post-op Csxn. No scotomata, mild nausea but no vomiting, no increasing edema. Incision C/D/I. BP's normalized. UOP decreased. LFT's elevated, normal platelets and coags. Creatinine normal. Plan is to continue MgSO4 for 24 hours. Anticipate eventual normalization of UOP in the next 24 hours. Continue to monitor LFT's progress (although cholelithiasis is noted, no evidence of biliary obstruction, suspect this is more related to preeclampsia/? mild HELLP, and will manage accordingly as long as enzymes normalyze). <Phan Mcconnell - Last Filed: 12/06/17 12:30>
[2017-12-05] MEDS ORDERED: Communication Order-Pharmacy FS SCH ×2 (07:30→08:00)
[2017-12-05] MEDS ORDERED: HYDROmorphone 2 MG/ML VIAL SLOW IVP PRN (07:48)
[2017-12-05] MEDS ORDERED: Ketorolac Tromethamine 30 MG/ML VIAL IVP SCH (08:00)
--- NOTE | 2017-12-05 08:20 | OP ---
DATE OF PROCEDURE: 12/04/2017 PREOPERATIVE DIAGNOSES: 1. Nonreassuring heart tones. 2. Preeclampsia with severe features. 3. Elevated liver function tests. 4. Cholelithiasis. 5. History of thyroid storm 6. History of 2 mid trimester losses. POSTOPERATIVE DIAGNOSES: 1. Nonreassuring heart tones. 2. Preeclampsia with severe features. 3. Elevated liver function tests. 4. Cholelithiasis. 5. History of thyrotoxicosis. 6. History of 2 mid trimester losses. PROCEDURE: Low transverse section SURGEON: Dr. Lopez Conn RESIDENTS: Dr. Samuels and Dr. Pena ANESTHESIA: Spinal. FLUIDS: 3 liters. URINE OUTPUT: 150 mL, concentrated, clear ESTIMATED BLOOD LOSS: 1000 mL. FINDINGS: Normal uterus, tubes, and ovaries; viable female Apgars 8 and 9 SPECIMENS: Cord gases and placenta. COMPLICATIONS: None immediate. INDICATION AND CONSENT: This is a 27-year-old G3, P 0-2 history of 2 previous mid trimester losses presents from antepartum testing for elevated blood pressure. She was found to have elevated liver function tests with subsequently normal pressures, but some midepigastric discomfort. After consultation with [facility] they recommended delivery. Magnesium was started. An attempt was made at induction, she was ruptured and internals were placed and subsequently she developed nonreassuring heart tones with bradycardia, minimal variability, intermittent late decelerations, and no acceleration to scalp stim. After discussion the risks, benefits, alternatives, indications of primary including pain, bleeding, infection, damage to bowel, bladder and internal organs, prolonged hospital stay, additional operations, and transfusion she elected to proceed. PROCEDURE IN DETAIL: The patient was taken back to the operating room where spinal anesthesia was obtained, she was prepped and draped in dorsal supine position with left lateral tilt. Pfannenstiel skin incision was made and carried down sharply to the fascia which was nicked and extended with a combination of blunt and sharp dissection. Superior rectus was grasped with 2 Kochers and dissected off the anterior rectus muscle. The peritoneum was entered bluntly and high and stretched. Bladder blade was placed. Bladder flap developed and a low transverse hysterotomy was made. This was extended with a craniocaudal fashion and a viable female , Apgars 8 and 9, delivered in cephalic position. A delayed clamping was performed and infant was handed to awaiting NICU attendants. Cord segment was taken, blood was sampled. Placenta delivered with controlled cord traction and fundal massage. Uterus was exteriorized and wiped x2 with a clean sponge. Hysterotomy with no extensions was closed with #1 Monocryl in a running locked fashion for the first layer and second layer imbricating in a running fashion. Several figure- of-eights were thrown for hemostasis and after meticulous hemostasis was obtained the uterus was placed back into the abdomen. The hysterotomy was again reinspected and one area of bleeding was noted and it was reinforced with a [id number] with good resultant hemostasis. Peritoneum was approximated in a running fashion with 3-0 Vicryl. Fascia was closed with 0 PDS in a running unlocked fashion. Subcutaneous tissue was irrigated and ensured of good hemostasis with Bovie electrocautery. The skin was closed with 4-0 Monocryl in a running subcuticular fashion. Counts were correct x2. No immediate complications. She was taken to the PACU in stable condition. Baby is in NICU. [place]
[2017-12-05] MEDS ORDERED: Meperidine HCl/PF 25 MG/ML VIAL ONE ×2 (08:43→09:18)
[2017-12-05] MEDS: Meperidine HCl/PF 25 MG/ML VIAL SLOW IVP PRN ×2 (08:49→09:19)
[2017-12-05] MEDS ORDERED: Pantoprazole 40 MG VIAL IVP SCH (09:00)
[2017-12-05 11:20] LABS: INR-International Normal Ratio 1.1; PTT 28.1 SEC (22.9-36.1); Prothrombin Time 13.8 SEC (12.0-14.7)
[2017-12-05 11:34] LABS: Potassium 3.4 mmol/L (3.5-5.1)
[2017-12-05] MEDS: Lactated Ringer's 1,000 ML IV SCH ×4 (12:10→23:41)
[2017-12-05] MEDS ORDERED: Lactated Ringer's 1,000 ML IV SCH (14:00)
--- NOTE | 2017-12-05 14:04 | PDOC.PP ---
Post Progress Note Post Day #: 0 Subjective: Patient denies headache or abdominal pain. She is feeling well and resting comfortably. PO intake tolerated: yes Flatus: no Ambulation: no Vital Signs (12 hours) Temp Pulse Resp BP Pulse Ox 12/05/17 08:08 98.1 F 88 20 126/86 95 12/05/17 08:00 97.8 F 88 18 95 Weight Admit Weight 88.904 kg Weight 88.904 kg See centricity record. All blood pressures post have been normal range. - Physical Examination General: NAD Cardiovascular: no m/r/g, RRR Respiratory: clear to auscultation bilaterally Abdominal: + bowel sounds Fundus firm & at: umbilicus Extremities: negative homans (B) Neurological: no gross focal deficits Deviation from normal: DTR 2+, alert and oriented Psychiatric: A&Ox3, normal affect Result Diagrams: 12/04/17 21:54 12/05/17 10:53 Additional Labs: Post Labs Hep Bs Antigen Non-Reactive S/CO (NonReactive) 12/04/17 21:54 (1) Pre-eclampsia Code(s): O14.90 - UNSPECIFIED PRE-ECLAMPSIA, UNSPECIFIED TRIMESTER Status: Acute Comment: now who is now 6 hours post delivery of ceserean section for bradycardia. She was having low urine output before delivery and it has improved slightly but last hour was only 24 mls. previous hour was about 100 ml/hr. Will give bolus of fluid. Continue mag at 1/hr while patient has low urine output. blood pressures have been well controlled. Coags were normal. LFTs and platlets recheck are pending. (2) Cholelithiasis Code(s): K80.20 - CALCULUS OF GALLBLADDER W/O CHOLECYSTITIS W/O OBSTRUCTION Status: Acute Comment: asymptomatic. will monitor
[2017-12-05 14:24] LABS: Hemoglobin 10.6 g/dL (12.0-16.0); Platelet Count 224 thou/uL (130-400)
[2017-12-05 14:54] LABS: ALT (SGPT) 120 U/L (8-55); AST (SGOT) 111 U/L (5-34); Albumin 2.6 g/dL (3.5-5.0); Alkaline Phosphatase 174 U/L (40-150); Anion Gap 14 mmol/L (10-20); BUN (Urea Nitrogen) 6 mg/dL (7.0-18.7); Calc. Creatinine Clearance 189 mL/min (70-130); Calcium 8.4 mg/dL (7.8-10.44); Carbon Dioxide 25 mmol/L (22-29); Chloride 104 mmol/L (98-107); Estimated GFR-MDRD Greater than 90; Globulin 3.1 g/dL (2.4-3.5); Glucose 104 mg/dL (70-105); Potassium 3.8 mmol/L (3.5-5.1); Protein, Total 5.7 g/dL (6.0-8.3); Sodium 139 mmol/L (136-145)
[2017-12-05] MEDS ORDERED: Dexamethasone 20 MG/5 ML VIAL ONE (16:19)
--- NOTE | 2017-12-05 17:50 | PDOC.PP ---
Post Progress Note Post Day #: 0 Subjective: No headache or vision changes. no abdominal pain PO intake tolerated: yes Vital Signs (12 hours) Temp Pulse Resp BP Pulse Ox 12/05/17 08:08 98.1 F 88 20 126/86 95 12/05/17 08:00 97.8 F 88 18 95 Weight Admit Weight 88.904 kg Weight 88.904 kg - Physical Examination General: NAD Cardiovascular: no m/r/g, RRR Respiratory: clear to auscultation bilaterally Neurological: no gross focal deficits (DtR 2+) Psychiatric: A&Ox3 Result Diagrams: 12/05/17 14:16 12/05/17 14:16 Additional Labs: Post Labs Hep Bs Antigen Non-Reactive S/CO (NonReactive) 12/04/17 21:54 (1) Pre-eclampsia Code(s): O14.90 - UNSPECIFIED PRE-ECLAMPSIA, UNSPECIFIED TRIMESTER Status: Acute Qualifiers: Trimester: third trimester Qualified Code(s): O14.93 - Unspecified pre- eclampsia, third trimester Comment: now who is now 10 hours post delivery of ceserean section for bradycardia. Improved urine output to 100 ml/hr last hour. blood pressures have been well controlled. Coags were normal. LFTs and platlets recheck are elevated but improved. (2) Cholelithiasis Code(s): K80.20 - CALCULUS OF GALLBLADDER W/O CHOLECYSTITIS W/O OBSTRUCTION Status: Acute Comment: asymptomatic. will monitor
--- NOTE | 2017-12-05 19:58 | PDOC.PP ---
Post Progress Note Post Day #: 1 Subjective: Pt is feeling well now. She denies headaches, changes in vision, dizziness, or abdominal pain. She has no specific complaints at this time. PO intake tolerated: yes Vital Signs (12 hours) Temp Pulse Resp BP Pulse Ox 12/05/17 16:08 97.2 F L 16 12/05/17 08:08 98.1 F 88 20 126/86 95 12/05/17 08:00 97.8 F 88 18 95 Weight Admit Weight 88.904 kg Weight 88.904 kg - Physical Examination General: NAD Cardiovascular: no m/r/g, RRR Respiratory: clear to auscultation bilaterally Abdominal: no distention, appropriately TTP Skin: CS incision dry & intact Neurological: no gross focal deficits (DTR 2+) Psychiatric: A&Ox3 Result Diagrams: 12/05/17 14:16 12/05/17 14:16 Additional Labs: Post Labs Hep Bs Antigen Non-Reactive S/CO (NonReactive) 12/04/17 21:54 (1) Cholelithiasis Code(s): K80.20 - CALCULUS OF GALLBLADDER W/O CHOLECYSTITIS W/O OBSTRUCTION Status: Acute QualifierTitle: Cholecystitis presence: without cholecystitis Biliary obstruction: without biliary obstruction Comment: asymptomatic. will monitor (2) Pre-eclampsia Code(s): O14.90 - UNSPECIFIED PRE-ECLAMPSIA, UNSPECIFIED TRIMESTER Status: Acute QualifierTitle: Trimester: third trimester Qualified Code(s): O14.93 - Unspecified pre-eclampsia, third trimester Comment: now who is now 13 hours post delivery of ceserean section for bradycardia. Urine output back down to 25 ml/hr last hour, though the previous hour it was 100. Blood pressures have been well controlled. Coags were normal. LFTs and platlets recheck are elevated but improved. Most recent Mg was 4.3. IVF currently running at 100, will move back to 125. <Elias Christiansen - Last Filed: 12/05/17 19:56> Vital Signs (12 hours) Temp Resp 12/05/17 16:08 97.2 F L 16 Weight Admit Weight 88.904 kg Weight 88.904 kg Result Diagrams: 12/05/17 14:16 12/05/17 14:16 Additional Labs: Post Labs Hep Bs Antigen Non-Reactive S/CO (NonReactive) 12/04/17 21:54 <Lopez Conn - Last Filed: 12/05/17 20:36> Attending Addendum - Attending Addendum Date/Time: 12/05/172034 Discussed the management with Dr. Donohue. 24 hours of mag, then d/c. Continue to monitor closely. <Lopez Conn - Last Filed: 12/05/17 20:36>
[2017-12-05] MEDS ORDERED: HYDROcodone/Acetaminophen 5/325 mg Tablet PO PRN (20:00)
[2017-12-05] MEDS ORDERED: Adacel (T-DAP) 0.5 ML VIAL IM ONE (21:00)
--- NOTE | 2017-12-06 01:27 | PDOC.PP ---
Post Progress Note Post Day #: 1 Subjective: Pt feeling well. Denies headache, changes in vision, dizziness, abdominal pain. Complains of continued n/v with po intake. PO intake tolerated: no Vital Signs (12 hours) Temp Pulse Resp 12/06/17 00:51 97.8 F 70 16 12/05/17 16:08 97.2 F L 16 Weight Admit Weight 88.904 kg Weight 88.904 kg - Physical Examination General: NAD Cardiovascular: no m/r/g, RRR Respiratory: clear to auscultation bilaterally Abdominal: + bowel sounds, appropriately TTP Extremities: negative homans (B) Skin: CS incision dry & intact Neurological: no gross focal deficits (DTR 3+) Psychiatric: A&Ox3 Result Diagrams: 12/05/17 14:16 12/05/17 14:16 Additional Labs: Post Labs Hep Bs Antigen Non-Reactive S/CO (NonReactive) 12/04/17 21:54 (1) Cholelithiasis Code(s): K80.20 - CALCULUS OF GALLBLADDER W/O CHOLECYSTITIS W/O OBSTRUCTION Status: Acute QualifierTitle: Cholecystitis presence: without cholecystitis Biliary obstruction: without biliary obstruction Comment: asymptomatic. will monitor (2) Pre-eclampsia Code(s): O14.90 - UNSPECIFIED PRE-ECLAMPSIA, UNSPECIFIED TRIMESTER Status: Acute QualifierTitle: Trimester: third trimester Qualified Code(s): O14.93 - Unspecified pre-eclampsia, third trimester Comment: now who is now 18 hours post delivery of ceserean section for bradycardia. Urine output 10-15ml/hr even with 500ml bolus. Blood pressures have been well controlled. Coags were normal. LFTs and platlets recheck are elevated but improved. Most recent Mg was 4.3. IVF currently running at 150 total mls/hr. Will recheck labs in am, if they continue to improve will continue to monitor without additional intervention. Pt clinically remains stable. <Elias Christiansen - Last Filed: 12/06/17 01:25> Vital Signs (12 hours) Temp Pulse Resp 12/06/17 04:00 97.8 F 70 16 12/06/17 00:51 97.8 F 70 16 Weight Admit Weight 88.904 kg Weight 88.904 kg Result Diagrams: 12/06/17 03:07 12/06/17 03:07 Additional Labs: Post Labs Hep Bs Antigen Non-Reactive S/CO (NonReactive) 12/04/17 21:54 <Lopez Conn - Last Filed: 12/06/17 06:33> Attending Addendum - Attending Addendum Date/Time: 12/06/1730 I personally evaluated the patient and discussed the management with Dr. Christiansen. I agree with the History, Examination, Assessment and Plan documented above with any addition or exceptions noted below. Will repeat a bolus and follow urine output closely. Repeat labs. Likely warrants renal/GI consultation in the AM. The differential remains unchanged from previous notes. The case has been discussed in detail with Dr. Talavera, who is following along and agrees with management. <Lopez Conn - Last Filed: 12/06/17 06:33>
[2017-12-06 03:21] LABS: #Monocytes 1.2 thou/uL (0.11-0.59); #Neutrophils 14.7 thou/uL (1.40-6.50); %Basophils 0.1 % (0.0-1.0); %Eosinophils 0.1 % (0.0-10.0); %Lymphocytes 11.4 % (21.0-51.0); %Monocytes 6.9 % (0.0-10.0); %Neutrophils 81.6 % (42.0-75.0); Hemoglobin 9.5 g/dL (12.0-16.0); Mean Corpuscular HGB CONC 33.1 g/dL (32.0-36.0); Mean Corpuscular Hemoglobin 30.2 pg (27.0-31.0); Mean Platelet Volume 8.8 fL (7.4-10.4); Platelet Count 201 thou/uL (130-400); RBC Distribution Width 13.1 % (11.5-14.5); Red Blood Cell (RBC) Count 3.15 mill/uL (4.20-5.40)
[2017-12-06 03:28] LABS: INR-International Normal Ratio 1.1; PTT 29.3 SEC (22.9-36.1); Prothrombin Time 14.1 SEC (12.0-14.7)
[2017-12-06 03:43] LABS: ALT (SGPT) 92 U/L (8-55); AST (SGOT) 77 U/L (5-34); Albumin 2.4 g/dL (3.5-5.0); Alkaline Phosphatase 157 U/L (40-150); Anion Gap 9 mmol/L (10-20); BUN (Urea Nitrogen) 6 mg/dL (7.0-18.7); Bilirubin, Total 0.8 mg/dL (0.2-1.2); Calc. Creatinine Clearance 189 mL/min (70-130); Carbon Dioxide 27 mmol/L (22-29); Chloride 104 mmol/L (98-107); Estimated GFR-MDRD Greater than 90; Globulin 2.7 g/dL (2.4-3.5); Glucose 96 mg/dL (70-105); Magnesium 4.4 mg/dL (1.6-2.6); Potassium 3.7 mmol/L (3.5-5.1); Protein, Total 5.1 g/dL (6.0-8.3); Sodium 136 mmol/L (136-145)
[2017-12-06] MEDS: Lactated Ringer's 1,000 ML IV SCH ×2 (04:01→15:46)
--- NOTE | 2017-12-06 04:57 | PRG ---
DATE OF SERVICE: 12/06/2017 ATTENDING PHYSICIAN: Lopez Conn M.D. SUBJECTIVE: The patient is feeling better. She denies headache or blurry vision. I was notified by the nurse regarding her persistent decreased urine output throughout the night. OBJECTIVE: VITAL SIGNS: Blood pressures were reassuring. Her pulse is stable. Urine output has been only 10-20 mL per hour over the last 6 hours. ABDOMEN: Soft, it is nontender and nondistended. Her dressing is dry. RESPIRATORY: Her chest is clear to auscultation. CARDIOVASCULAR: Regular rate and rhythm. GENITOURINARY: Vigil shows dark jimmy urine. LABORATORY DATA: Drawn early this morning show a white count of 18, hemoglobin and hematocrit of 9.5 and 28.6 respectively, with a platelet count of 201. Electrolytes are all normal with a creatinine of 0.64. She is currently on magnesium with a level of 4.4 and her uric acid is 8.0. ASSESSMENT: 1. Postoperative day #1, currently on magnesium. 2. Decreased urine output. PLAN: At this time, I will give her a fluid bolus of 300 mL over the next couple of hours and watch carefully for improvement of urinary output. I would consider a Renal consult if her urinary output does not improve. [place]
--- NOTE | 2017-12-06 06:55 | PDOC.PP ---
Post Progress Note Post Day #: 1 Subjective: Pt is comfortable and has no specific complaints. Denies headache, changes in vision, n/v PO intake tolerated: no Flatus: yes Ambulation: no Vital Signs (12 hours) Temp Pulse Resp 12/06/17 04:00 97.8 F 70 16 12/06/17 00:51 97.8 F 70 16 Weight Admit Weight 88.904 kg Weight 88.904 kg - Physical Examination General: NAD Cardiovascular: no m/r/g, RRR Respiratory: clear to auscultation bilaterally, non-labored breathing Abdominal: + bowel sounds, appropriately TTP Extremities: negative homans (B) Skin: CS incision dry & intact Neurological: no gross focal deficits (DTR 2+) Psychiatric: A&Ox3 Result Diagrams: 12/06/17 03:07 12/06/17 03:07 Additional Labs: Post Labs Hep Bs Antigen Non-Reactive S/CO (NonReactive) 12/04/17 21:54 (1) Cholelithiasis Code(s): K80.20 - CALCULUS OF GALLBLADDER W/O CHOLECYSTITIS W/O OBSTRUCTION Status: Acute Qualifiers: Cholecystitis presence: without cholecystitis Biliary obstruction: without biliary obstruction Comment: asymptomatic. will monitor (2) Pre-eclampsia Code(s): O14.90 - UNSPECIFIED PRE-ECLAMPSIA, UNSPECIFIED TRIMESTER Status: Acute Qualifiers: Trimester: third trimester Qualified Code(s): O14.93 - Unspecified pre- eclampsia, third trimester Comment: now who is now 18 hours post delivery of ceserean section for bradycardia. Urine output continues to trend down, most recent 6 ml/hr. Blood pressures have been well controlled. Coags were normal. LFTs and platlets recheck are elevated but improved. Most recent Mg was 4.4. IVF currently running at 150 total mls/hr. Labs continue to improve. Pt clinically remains stable.
--- NOTE | 2017-12-06 07:00 | PDOC.PP ---
Post Progress Note Post Day #: 1 Subjective: Pt has no specific complaints. Denies headache, n/v, blurry vision, abd pain. PO intake tolerated: no Flatus: yes Ambulation: no Vital Signs (12 hours) Temp Pulse Resp 12/06/17 04:00 97.8 F 70 16 12/06/17 00:51 97.8 F 70 16 Weight Admit Weight 88.904 kg Weight 88.904 kg - Physical Examination General: NAD Cardiovascular: no m/r/g, RRR Respiratory: clear to auscultation bilaterally Abdominal: + bowel sounds, appropriately TTP Extremities: negative homans (B) Skin: CS incision dry & intact Neurological: no gross focal deficits (DTR 2+) Psychiatric: A&Ox3 Result Diagrams: 12/06/17 03:07 12/06/17 03:07 Additional Labs: Post Labs Hep Bs Antigen Non-Reactive S/CO (NonReactive) 12/04/17 21:54 (1) Cholelithiasis Code(s): K80.20 - CALCULUS OF GALLBLADDER W/O CHOLECYSTITIS W/O OBSTRUCTION Status: Acute QualifierTitle: Cholecystitis presence: without cholecystitis Biliary obstruction: without biliary obstruction Comment: asymptomatic. will monitor (2) Pre-eclampsia Code(s): O14.90 - UNSPECIFIED PRE-ECLAMPSIA, UNSPECIFIED TRIMESTER Status: Acute QualifierTitle: Trimester: third trimester Qualified Code(s): O14.93 - Unspecified pre-eclampsia, third trimester Comment: now who is now 18 hours post delivery of ceserean section for bradycardia. Urine output continues to trend down, most recent 6 ml/hr. Blood pressures have been well controlled. Coags were normal. LFTs and platlets recheck are elevated but improved. Most recent Mg was 4.4. IVF currently running at 150 total mls/hr. Labs continue to improve. Pt clinically remains stable. <Elias Christiansen - Last Filed: 12/06/17 06:59> Vital Signs (12 hours) Temp Pulse Resp 12/06/17 08:00 97.8 F 70 16 12/06/17 04:00 97.8 F 70 16 Weight Admit Weight 88.904 kg Weight 88.904 kg Result Diagrams: 12/06/17 03:07 12/06/17 03:07 Additional Labs: Post Labs Hep Bs Antigen Non-Reactive S/CO (NonReactive) 12/04/17 21:54 <Lopez Conn - Last Filed: 12/06/17 14:16> Attending Addendum - Attending Addendum Date/Time: 12/06/17 2561 I personally evaluated the patient and discussed the management with Dr. Christiansen. I agree with the History, Examination, Assessment and Plan documented above with any addition or exceptions noted below. Continue magnesium and IVF. Await consultation. Discussed with Dr. Mcconnell who is assuming care. <Lopez Conn - Last Filed: 12/06/17 14:16>
--- NOTE | 2017-12-06 07:26 | PDOC.PP ---
Post Progress Note Post Day #: 2 Subjective: Patient is sitting up in bed tolerating PO intake of juice and water without N/ V. Patient denies SOB, CP, edema, MATOS, and nausea. Overnight, urine output has worsened with about 5cc/hr. Otherwise vital signs have been normal and no acute events. Vital Signs (12 hours) Temp Pulse Resp 12/06/17 04:00 97.8 F 70 16 12/06/17 00:51 97.8 F 70 16 Weight Admit Weight 88.904 kg Weight 88.904 kg - Physical Examination General: NAD Cardiovascular: no m/r/g, RRR Respiratory: clear to auscultation bilaterally, non-labored breathing Abdominal: + bowel sounds, lochia, no distention, appropriately TTP Fundus firm & at: umbilicus Extremities: negative homans (B) Deviation from normal: no pitting edema Deviation from normal: dressing in place Neurological: no gross focal deficits Psychiatric: A&Ox3, normal affect Result Diagrams: 12/06/17 03:07 12/06/17 03:07 Additional Labs: Post Labs Hep Bs Antigen Non-Reactive S/CO (NonReactive) 12/04/17 21:54 (1) Pre-eclampsia Code(s): O14.90 - UNSPECIFIED PRE-ECLAMPSIA, UNSPECIFIED TRIMESTER Status: Acute QualifierTitle: Trimester: third trimester Qualified Code(s): O14.93 - Unspecified pre-eclampsia, third trimester Comment: now who is now 24 hours post delivery of ceserean section for bradycardia. Urine output continues to trend down, most recent 6 ml/hr. Blood pressures have been well controlled. Coags were normal. LFTs and platlets recheck are elevated but improved. Most recent Mg was 4.4. IVF currently running at 150 total mls/hr. Labs continue to improve. Pt clinically remains stable. Consult Nephro for recommendations. Continue Mg ggt. (2) Decreased urine output Code(s): R34 - ANURIA AND OLIGURIA Status: Acute Comment: Consult Nephro for recommendations. (3) delivery Status: Acute Comment: 27yo @ 35.3 presented with N/V, elevated pressures, and dizziness. Found to elevated liver enzymes RUQ showing cholelithiasis but no obstruction. MFM was consulted and recommeneded delivery. Patient delivered AGA F via Csection yesterday morning. Continue Mg ggt until LFT's normalize. Recheck LFT's and coags at 1200. Concern with poor UOP. Last Mg 4.4. <Latrice Meza - Last Filed: 12/06/17 08:52> Vital Signs (12 hours) Temp Pulse Resp 12/06/17 08:00 97.8 F 70 16 12/06/17 04:00 97.8 F 70 16 12/06/17 00:51 97.8 F 70 16 Weight Admit Weight 88.904 kg Weight 88.904 kg Result Diagrams: 12/06/17 03:07 12/06/17 03:07 Additional Labs: Post Labs Hep Bs Antigen Non-Reactive S/CO (NonReactive) 12/04/17 21:54 <Phan Mcconnell - Last Filed: 12/06/17 12:48> Attending Addendum - Attending Addendum Date/Time: 12/06/17 1240 I personally evaluated the patient and discussed the management with Dr. Meza I agree with the History, Examination, Assessment and Plan documented above with any addition or exceptions noted below. No vomitting currently, tolerating clear liqs. No MATOS, scotomata, peripheral edema, RUQ pain. BP's normal. Incision C/D/I. Trace edema. DTR's 2+. UOP has picked up to average of 30 ml/hr since this morning. LFT's continue to trend toward normal and renal function is still preserved. Will heplock IV, ambulate pt. to mobilize fluids. Nephrology consulted, renal US shows expected related Right mild hydronephrosis. Will continue current monitoring and expect post recovery diuresis to progress. <Phan Mcconnell - Last Filed: 12/06/17 12:48>
--- NOTE | 2017-12-06 11:52 | ULT ---
RENAL ULTRASOUND: CLINICAL HISTORY: Oliguria. Preeclampsia. Status post recent . FINDINGS: There is mild right hydronephrosis. No hydronephrosis of the left kidney. There are no discrete par enchymal lesions involving either kidney. The urinary bladder is decompressed with an indwelling cat heter. Symmetric renal lengths, each of which measure approximately 11 cm, is demonstrated. IMPRESSION: Mild right hydronephrosis. There is no significant interval change when comparing to recent ultrasound from 12/04/2017. POS: ANA
[2017-12-06 15:13] LABS: ALT (SGPT) 87 U/L (8-55); AST (SGOT) 72 U/L (5-34); Albumin 2.5 g/dL (3.5-5.0); Alkaline Phosphatase 155 U/L (40-150); Anion Gap 9 mmol/L (10-20); BUN (Urea Nitrogen) 6 mg/dL (7.0-18.7); Bilirubin, Total 0.7 mg/dL (0.2-1.2); Calc. Creatinine Clearance 180 mL/min (70-130); Calcium 8.1 mg/dL (7.8-10.44); Carbon Dioxide 28 mmol/L (22-29); Chloride 102 mmol/L (98-107); Estimated GFR-MDRD Greater than 90; Globulin 2.8 g/dL (2.4-3.5); Glucose 95 mg/dL (70-105); Magnesium 2.8 mg/dL (1.6-2.6); Potassium 3.1 mmol/L (3.5-5.1); Protein, Total 5.3 g/dL (6.0-8.3); Sodium 136 mmol/L (136-145)
[2017-12-06] MEDS: Ondansetron ODT 8 MG TAB SL SCH (15:47)
[2017-12-06] MEDS: HYDROcodone/Acetaminophen 5/325 mg Tablet PO PRN (15:48)
[2017-12-06 15:55] LABS: Bacteria/HPF Rare-Few HPF (None Seen); Hyaline Casts/LPF 0-3 HYALINE CAST LPF (0-3 Hyaline); RBC/HPF GREATER THAN 50-TNTC HPF (0-3); Squamous Epithelial 0-3 HPF (0-3)
[2017-12-06] MEDS ORDERED: Potassium Chloride 20 MEQ TAB PO SCH (16:45)
[2017-12-06 17:06] LABS: Bilirubin Small (Negative); Blood, Urine Large (Negative); Clarity CLOUDY (Clear); Glucose, Urine (Dipstick) Negative (Negative); Leukocyte Moderate (Negative); Nitrite Negative (Negative); Protein, Urine (Dipstick) Negative (Neg-Trace); Specific Gravity, Urine 1.026 (1.002-1.036); pH, Urine 7.5 (5.0-9.0)
[2017-12-07 06:23] LABS: ALT (SGPT) 72 U/L (8-55); AST (SGOT) 59 U/L (5-34); Albumin 2.4 g/dL (3.5-5.0); Alkaline Phosphatase 140 U/L (40-150); Anion Gap 10 mmol/L (10-20); BUN (Urea Nitrogen) 8 mg/dL (7.0-18.7); Bilirubin, Total 0.7 mg/dL (0.2-1.2); Calc. Creatinine Clearance 201 mL/min (70-130); Calcium 8.3 mg/dL (7.8-10.44); Carbon Dioxide 26 mmol/L (22-29); Chloride 105 mmol/L (98-107); Estimated GFR-MDRD Greater than 90; Globulin 2.7 g/dL (2.4-3.5); Glucose 70 mg/dL (70-105); Potassium 3.5 mmol/L (3.5-5.1); Protein, Total 5.1 g/dL (6.0-8.3); Sodium 137 mmol/L (136-145); Uric Acid 8.1 mg/dL (2.6-6.0)
--- NOTE | 2017-12-07 06:44 | PDOC.PP ---
Post Progress Note Post Day #: 2 Subjective: Patient is doing better this morning. Vigil was discontinued last night and patient has been up moving around and toileting herself. She reports more frequent urination and some urgency. Denies dysuria. Overall, patient reports she is feeling more like herself and much better. Flatus: yes Ambulation: yes Vital Signs (12 hours) Temp Pulse Resp 12/07/17 04:00 97.8 F 70 16 12/07/17 00:00 97.8 F 70 16 12/06/17 20:00 97.8 F 70 16 Weight Admit Weight 88.904 kg Weight 88.904 kg - Physical Examination General: NAD Cardiovascular: no m/r/g, RRR Respiratory: clear to auscultation bilaterally, non-labored breathing Abdominal: + bowel sounds, lochia, no distention, appropriately TTP Fundus firm & at: umbilicus Extremities: negative homans (B) Skin: CS incision dry & intact, no rash Neurological: no gross focal deficits Psychiatric: A&Ox3, normal affect Result Diagrams: 12/06/17 03:07 12/07/17 05:38 Additional Labs: Post Labs Hep Bs Antigen Non-Reactive S/CO (NonReactive) 12/04/17 21:54 (1) Pre-eclampsia Code(s): O14.90 - UNSPECIFIED PRE-ECLAMPSIA, UNSPECIFIED TRIMESTER Status: Acute QualifierTitle: Trimester: third trimester Qualified Code(s): O14.93 - Unspecified pre-eclampsia, third trimester Comment: now who is now 48 hours post delivery of ceserean section for bradycardia. Urine output improving, 50cc/hr most recently. Blood pressures have been well controlled. Coags were normal. LFTs and platlets recheck are elevated but improved. IVF are SL at this time, recommend PO hydration. Labs continue to improve. Pt clinically remains stable. Consulted Nephro for recs, renal u/s wnl, UA shows UTI, but no protienuria. Magnesium d/c' d yesterday. (2) Decreased urine output Code(s): R34 - ANURIA AND OLIGURIA Status: Acute Comment: Nephro following, appreciate recs. (3) delivery Status: Acute Comment: 27yo @ 35.3 presented with N/V, elevated pressures, and dizziness. Found to elevated liver enzymes RUQ showing cholelithiasis but no obstruction. MFM was consulted and recommeneded delivery. Patient delivered AGA F via Csection. (4) Urinary tract infection Status: Acute Comment: UA with increased LE and WBC. Large blood as well. Urine cx pending. <Latrice Meza - Last Filed: 12/07/17 08:52> Weight Admit Weight 88.904 kg Weight 88.904 kg Result Diagrams: 12/06/17 03:07 12/08/17 07:07 Additional Labs: Post Labs Hep Bs Antigen Non-Reactive S/CO (NonReactive) 12/04/17 21:54 <Phan Mcconnell - Last Filed: 01/05/18 13:35> Attending Addendum - Attending Addendum Date/Time: 01/05/18 1332 I personally evaluated the patient and discussed the management with Dr. Meza on 12/07/17 I agree with the History, Examination, Assessment and Plan documented above with any addition or exceptions noted below. Pain controlled. Afeb. Incision C/D/I. UOP still remains tenuous. BP's OK. Will continue monitoring, suspect will resume promptly in response to Preeclampsia recovery. <Phan Mcconnell - Last Filed: 01/05/18 13:35>
--- NOTE | 2017-12-07 06:56 | CON ---
DATE OF CONSULTATION: 12/06/2017 CONSULTING PHYSICIAN: Mario Isbell M.D. REQUESTING PHYSICIAN: Phan Mcconnell M.D. REASON FOR CONSULTATION: Possible preeclampsia with decreased urinary output. IMPRESSION: 1. Decreasing urinary output/oliguria. This is likely in the context of intravascular depletion. I do not think this is a full-blown preeclampsia. 2. Looking at this patient and checking the constellation of symptoms and signs, I do not think this patient has a full-blown preeclampsia. PLAN: 1. Get a urinalysis, if he has no evidence of proteinuria, we will not bother to get a spot urine pr otein creatinine range. 2. We will recommend IV fluid resuscitation, but if patient is able to take adequate p.o. intake, wi ll . 3. Renal ultrasound which has been done showed no significant abnormality. HISTORY OF PRESENT ILLNESS: This is a 27-year-old female patient who just had a baby. The patient o vernight was noticed to be experiencing reduced urinary output to the point of about 5 mL per hour. As a result of this, decision was taken to involve Renal in the management of this case. There was a question of possible preeclampsia, pre-delivery, and possibly . At this point, however, clinic al evaluation does not think so. PAST MEDICAL HISTORY: Pretty much unremarkable. MEDICATIONS: Reviewed and as documented on [email or web address]. ALLERGIES: No known drug allergy. FAMILY HISTORY: No family history of kidney disease. SOCIAL HISTORY: Denies alcohol or illicit drug use. PHYSICAL EXAMINATION: GENERAL: On examination, the patient was noted not to be in any obvious distress noted with followin g vital signs. VITAL SIGNS: Afebrile, temperature 98.5, pulse 73, respiratory 18, blood pressure 117/75. HEENT: Unremarkable. Moist oral mucosa. NECK: Supple, no conjunctival injection or icterus. CARDIOVASCULAR SYSTEM: First and second heart sounds were heard. RESPIRATORY SYSTEM: Clear to auscultation. DIGESTIVE SYSTEM: Revealed a benign abdomen . EXTREMITIES: No peripheral edema. SKIN: No new gross rash. LYMPHATICS: No peripheral lymphadenopathy. SUMMARY: A 27-year-old female patient who just had a baby and experiencing dwindling urinary output which I do suspect is related to possible intravascular depletion.
[2017-12-07] MEDS: Lactated Ringer's 1,000 ML IV SCH ×3 (10:32→14:01)
[2017-12-07] MEDS: Ondansetron ODT 8 MG TAB SL SCH ×3 (10:33→11:03)
[2017-12-07] MEDS: Sulfameth/Trimethoprim DS 800-160mg TAB PO SCH ×2 (10:57→20:36)
[2017-12-07] MEDS: HYDROcodone/Acetaminophen 5/325 mg Tablet PO PRN (20:36)
[2017-12-07] MEDS ORDERED: Docusate Calcium (SURFAK) 240 MG CAP PO SCH (22:00)
--- NOTE | 2017-12-08 00:30 | PRG ---
DATE OF SERVICE: 12/07/2017 SUBJECTIVE: The patient is seen and examined today and seems to be doing very well. PHYSICAL EXAMINATION: VITAL SIGNS: Afebrile with temperature 98.1, pulse 67, respiratory 18, blood pressure 127/74. HEENT: Unremarkable. CARDIOVASCULAR: First and second heart sounds were heard. RESPIRATORY: Clear to auscultation. DIGESTIVE: Revealed a benign abdomen with positive bowel sound. EXTREMITIES: No peripheral edema. SKIN: No new gross rash. LYMPHATICS: No peripheral lymphadenopathy. IMPRESSION: Preeclampsia, which is unlikely in this patient. PLAN: Continue other current management. At this point, we will sign off as my service is no longer needed; however, if any consent, I will be available to be called back into the case.
[2017-12-08] MEDS: HYDROcodone/Acetaminophen 5/325 mg Tablet PO PRN ×3 (03:37→13:54)
--- NOTE | 2017-12-08 06:53 | PDOC.PP ---
Post Progress Note Post Day #: 3 Subjective: Patient doing well this AM. No significant overnight events. Ambulating without assistance. Urinary output has increased. Patient does not report any dysuria. Encouraged PO intake. Patient in great spirits and feeling so much better. She denies any nausea or vomiting. PO intake tolerated: yes Flatus: yes Ambulation: yes Vital Signs (12 hours) Temp Pulse Resp BP 12/08/17 04:00 98.5 F 70 18 125/79 12/07/17 20:00 98.1 F 67 18 Weight Admit Weight 88.904 kg Weight 88.904 kg - Physical Examination General: NAD Cardiovascular: no m/r/g, RRR Respiratory: clear to auscultation bilaterally, non-labored breathing Abdominal: + bowel sounds, lochia (wnl), no distention, appropriately TTP Fundus firm & at: Below umbilicus Extremities: negative homans (B) Skin: CS incision dry & intact, no rash Neurological: no gross focal deficits Psychiatric: A&Ox3, normal affect Result Diagrams: 12/06/17 03:07 12/07/17 05:38 Additional Labs: Post Labs Hep Bs Antigen Non-Reactive S/CO (NonReactive) 12/04/17 21:54 (1) Pre-eclampsia Code(s): O14.90 - UNSPECIFIED PRE-ECLAMPSIA, UNSPECIFIED TRIMESTER Status: Acute QualifierTitle: Trimester: third trimester Qualified Code(s): O14.93 - Unspecified pre-eclampsia, third trimester Comment: Pre-eclampsia with severe features. now who is now 72 hours post delivery of ceserean section for bradycardia. Urine output improving. Blood pressures have been well controlled. Coags were normal. LFTs and platlets recheck are elevated but improved. IVF are SL at this time, recommend PO hydration. Labs continue to improve. Pt clinically remains stable. Nephro consulted; appreciate recs. Likely decreased urinary output from intravascular volume depletion, renal u/s wnl, UA shows UTI, but no protienuria. Magnesium d/c'd 48 hours ago. BP's have remained wnl (117-127/73-86 ). Routine PP care. (2) Cholelithiasis Code(s): K80.20 - CALCULUS OF GALLBLADDER W/O CHOLECYSTITIS W/O OBSTRUCTION Status: Acute QualifierTitle: Cholecystitis presence: without cholecystitis Biliary obstruction: without biliary obstruction Comment: Asymptomatic. Will continue to monitor. LFT's have downtrended slightly. (3) Decreased urine output Code(s): R34 - ANURIA AND OLIGURIA Status: Acute Comment: Nephro following, appreciate recs. Likely due to decreased intravascular volume. Neprho has signed off case. Recommend PO hydration. (4) Urinary tract infection Status: Acute Comment: UA with increased LE and WBC. Large blood as well. Urine cx pending. Patient started on Bactrim. (5) S/P primary low transverse Code(s): Z98.891 - HISTORY OF UTERINE SCAR FROM PREVIOUS SURGERY Status: Acute Comment: now who is now 72 hours post delivery of ceserean section for bradycardia/posssible pre-eclampsia with severe features. Delivered female infant at 35.3 weeks via primary LTCS at 0653 on . No complications. Continue routine PP care. Desires Essure as form of contracpetion. Plans on bottle feeding. - Assessment/Plan Plan for D/C home today. Infant will remain in NICU. <Jie Hadley - Last Filed: 12/08/17 07:14> Weight Admit Weight 88.904 kg Weight 88.904 kg Result Diagrams: 12/06/17 03:07 12/08/17 07:07 Additional Labs: Post Labs Hep Bs Antigen Non-Reactive S/CO (NonReactive) 12/04/17 21:54 <Phan Mcconnell - Last Filed: 01/05/18 14:41> Attending Addendum - Attending Addendum Date/Time: 01/05/18 1440 I personally evaluated the patient and discussed the management with Dr. Hadley on 12/08/17 I agree with the History, Examination, Assessment and Plan documented above with any addition or exceptions noted below. Pain controlled. Afeb. Incision C/D/I. UOP improved. Stable for d/c home. <Phan Mcconnell - Last Filed: 01/05/18 14:41>
[2017-12-08 07:42] LABS: ALT (SGPT) 53 U/L (8-55); AST (SGOT) 38 U/L (5-34); Albumin 2.4 g/dL (3.5-5.0); Alkaline Phosphatase 125 U/L (40-150); Anion Gap 12 mmol/L (10-20); BUN (Urea Nitrogen) 8 mg/dL (7.0-18.7); Bilirubin, Total 0.7 mg/dL (0.2-1.2); Calc. Creatinine Clearance 205 mL/min (70-130); Calcium 8.2 mg/dL (7.8-10.44); Carbon Dioxide 23 mmol/L (22-29); Chloride 107 mmol/L (98-107); Estimated GFR-MDRD Greater than 90; Globulin 2.7 g/dL (2.4-3.5); Glucose 74 mg/dL (70-105); Potassium 3.5 mmol/L (3.5-5.1); Protein, Total 5.1 g/dL (6.0-8.3); Sodium 138 mmol/L (136-145)
[2017-12-08 08:24] VITALS: TEMP 97.9
[2017-12-08] MEDS: Lactated Ringer's 1,000 ML IV SCH (08:57)
[2017-12-08] MEDS ORDERED: Docusate Calcium (SURFAK) 240 MG CAP PO SCH (09:00)
[2017-12-08] MEDS: Sulfameth/Trimethoprim DS 800-160mg TAB PO SCH (09:37)
[2017-12-08 12:18] VITALS: BP 131/83
== END 2017-12-08 14:05 | disposition home or self-care (01) | DRG 766 ==
LOC: L&D/OP 16:17 → L&D 20:59 → OBSVTOIN 20:59 → L&D 12-05 06:28 → 3SW 12-07 10:06
PROVIDERS: ADMIT Emergency Medicine; ATTEND Emergency Medicine
PROC: 10907ZC Drainage of Amniotic Fluid, Therapeutic from Products of Conception, Via Natural or Artificial Opening (ICD-10-PCS; principal; 2017-12-05)
PROC: 10D00Z1 Extraction of Products of Conception, Low, Open Approach (ICD-10-PCS; 2017-12-05)
PROC: 10H07YZ Insertion of Other Device into Products of Conception, Via Natural or Artificial Opening (ICD-10-PCS; 2017-12-05)
PROC: 4A1H74Z Monitoring of Products of Conception, Cardiac Electrical Activity, Via Natural or Artificial Opening (ICD-10-PCS; 2017-12-05)
DX: O14.14 Severe pre-eclampsia complicating childbirth (principal); O60.14X0 Preterm labor third trimester with preterm delivery third trimester, not applicable or unspecified; O86.20 Urinary tract infection following delivery, unspecified; E86.0 Dehydration; Z3A.35 35 weeks gestation of pregnancy; Z37.0 Single live birth; O76 Abnormality in fetal heart rate and rhythm complicating labor and delivery; O99.824 Streptococcus B carrier state complicating childbirth; O99.62 Diseases of the digestive system complicating childbirth; K80.20 Calculus of gallbladder without cholecystitis without obstruction; O21.0 Mild hyperemesis gravidarum; O99.285 Endocrine, nutritional and metabolic diseases complicating the puerperium; E05.90 Thyrotoxicosis, unspecified without thyrotoxic crisis or storm; E87.6 Hypokalemia
CPT/HCPCS: 36415; 51702; 59025; 76705; 76770; 76815; 76819; 80048; 80053; 80074; 80076; 80306; 81003; 81015; 82570; 82805; 83010; 83615; 83690; 83735; 84156; 84439; 84443; 84550; 85014; 85018; 85025; 85027; 85049; 85060; 85610; 85730; 86780; 87086; 87340; 87389; 88307; 99285; J0595; J1100; J1885; J2001; J2175; J2274; J2405; J2540; J2590; J3475; J3480; J7050

== ENCOUNTER 2017-12-19 13:08 | Observation (INO) | payer OTHER ==
[2017-12-19] MEDS ORDERED: Succinylcholine Chloride 20 MG/ML 10 ml SYRINGE FS ONE (14:43)
[2017-12-19] MEDS ORDERED: Glycopyrrolate 0.2 MG/ML 5 ML SYRINGE ONE (14:43)
[2017-12-19] MEDS ORDERED: PROPOFOL 200 MG/20 ML VIAL ONE (14:43)
[2017-12-19] MEDS ORDERED: Lidocaine 1% PF 5 ML VIAL ONE (14:43)
[2017-12-19] MEDS ORDERED: Ondansetron HCl/PF 4 MG/2 ML Vial ONE (14:43)
[2017-12-19] MEDS ORDERED: Esmolol 100 MG/10 ML VIAL ONE (14:43)
[2017-12-19 16:29] LABS: Bilirubin Negative (Negative); Blood, Urine Large (Negative); Clarity CLEAR (Clear); Glucose, Urine (Dipstick) Negative (Negative); Leukocyte Negative (Negative); Nitrite Negative (Negative); Protein, Urine (Dipstick) Negative (Neg-Trace); Specific Gravity, Urine 1.019 (1.002-1.036)
[2017-12-19 16:32] LABS: Bacteria/HPF 1+ HPF (None Seen); Hyaline Casts/LPF 0-3 HYALINE CAST LPF (0-3 Hyaline); Pathc Cast-AUWi Flag 0.13 (0-2.49); Squamous Epithelial 0-3 HPF (0-3); WBC/HPF 0-3 HPF (0-3)
[2017-12-19] MEDS ORDERED: ISOVUE-370 76%-LOCM 1 ML ONE (16:35)
[2017-12-19 19:37] LABS: #Lymphocytes 1.8 thou/uL (1.20-3.40); #Monocytes 0.3 thou/uL (0.11-0.59); %Basophils 0.6 % (0.0-1.0); %Eosinophils 0.4 % (0.0-10.0); %Lymphocytes 25.2 % (21.0-51.0); %Monocytes 4.1 % (0.0-10.0); %Neutrophils 69.7 % (42.0-75.0); Hemoglobin 10.8 g/dL (12.0-16.0); Mean Corpuscular HGB CONC 32.3 g/dL (32.0-36.0); Mean Corpuscular Volume 92.9 fl (81.0-99.0); Mean Platelet Volume 7.5 fL (7.4-10.4); Platelet Count 319 thou/uL (130-400); RBC Distribution Width 13.6 % (11.5-14.5); Red Blood Cell (RBC) Count 3.61 mill/uL (4.20-5.40); White Blood Cell (WBC) Count 7.2 thou/uL (4.8-10.8)
[2017-12-19 20:08] LABS: ALT (SGPT) 254 U/L (8-55); AST (SGOT) 638 U/L (5-34); Albumin 3.8 g/dL (3.5-5.0); Alkaline Phosphatase 252 U/L (40-150); Anion Gap 14 mmol/L (10-20); BUN (Urea Nitrogen) 10 mg/dL (7.0-18.7); Bilirubin, Total 1.4 mg/dL (0.2-1.2); Calc. Creatinine Clearance 0 mL/min (70-130); Calcium 9.4 mg/dL (7.8-10.44); Carbon Dioxide 22 mmol/L (22-29); Chloride 107 mmol/L (98-107); Estimated GFR-MDRD Greater than 90; Globulin 3.3 g/dL (2.4-3.5); Glucose 70 mg/dL (70-105); Lipase 52 U/L (8-78); Protein, Total 7.1 g/dL (6.0-8.3); Sodium 139 mmol/L (136-145)
[2017-12-19] MEDS ORDERED: Ketorolac Tromethamine 30 MG/ML VIAL ONE (20:48)
--- NOTE | 2017-12-19 21:11 | CT ---
CT ABDOMEN AND PELVIS WITH CONTRAST: 12/19/17 Multiple axial tomograms obtained through the abdomen and pelvis with IV enhancement. HISTORY: Abdominal pain. Lung bases are clear. Liver, spleen and pancreas unremarkable. The gallbladder shows evidence of pericholecystic edema. No evidence of biliary duct dilatation. Small bowel loops show nonspecific fluid distention without dilatation. Appendix appears unremarkable . Colon is unremarkable. No adenopathy. Images through the pelvis show prominent uterus and prominent endometrium. The adnexa appear unremark able. Urinary bladder is distended and unremarkable. The kidneys are unremarkable. No hydronephrosis. IMPRESSION: 1. Evidence of pericholecystic edema. Recommend clinical correlation and gallbladder ultrasound evaluation. 2. Nonspecific fluid filled small bowel distention. 3. Prominent uterus and endometrium. History reportedly states patient is two weeks post C-secti on which would explain this finding. POS: ANA
--- NOTE | 2017-12-19 21:25 | ULT ---
GALLBLADDER ULTRASOUND: 12/19/17 HISTORY: Epigastric pain and nausea. Gallbladder shows mild contraction. There is evidence of gallbladder wall thickening and mild pericho lecystic edema. There are numerous small gallstones seen in the gallbladder. The common duct is marlon l caliber at 3 mm. Technologist describes a negative Madden's sign. The visualized liver appears unremarkable. The pancreas is partially imaged and appears unremarkable as visualized. The right kidney is unremarkable. IMPRESSION: 1. Gallbladder is contracted with a thickened wall and mild pericholecystic edema. 2. Numerous small gallstones are identified. POS: ANA
[2017-12-19] MEDS ORDERED: Ondansetron ODT 4 MG TAB SL PRN (23:11)
[2017-12-19] MEDS ORDERED: Ondansetron HCl/PF 4 MG/2 ML Vial IVP PRN (23:11)
[2017-12-20] MEDS: Morphine 5 MG/ML SYRINGE SLOW IVP SCH ×2 (06:09→08:53)
[2017-12-20] MEDS ORDERED: Ketorolac Tromethamine 30 MG/ML VIAL IVP SCH (08:15)
[2017-12-20] MEDS ORDERED: Acetaminophen 1,000 MG in Premix Bag 1 BAG IVPB SCH (08:30)
[2017-12-20] MEDS: cefOXitin 2 GM, Syringe 1 ML in Sterile Water 10 ML SLOW IVP SCH ×2 (08:45→08:47)
[2017-12-20] MEDS: Sodium Chloride 0.9% 1,000 ML IV SCH ×2 (08:53→08:55)
[2017-12-20 08:58] LABS: ALT (SGPT) 153 U/L (8-55); AST (SGOT) 204 U/L (5-34); Albumin 3.1 g/dL (3.5-5.0); Alkaline Phosphatase 189 U/L (40-150); Bilirubin, Direct 0.3 mg/dL (0.1-0.3); Bilirubin, Total 0.8 mg/dL (0.2-1.2); Protein, Total 5.7 g/dL (6.0-8.3)
[2017-12-20] MEDS ORDERED: FLU VACC QS2017-18 36 mo. & older 0.5 ML SYRINGE IM ONE (09:00)
--- NOTE | 2017-12-20 09:57 | HP ---
REASON FOR ADMISSION/CHIEF COMPLAINT: Abdominal pain, abnormal liver function tests, cholelithiasis. HISTORY OF PRESENT ILLNESS: The patient is a 27-year-old black female. She gave to her first child 2 weeks ago. She has been recognized to have gallbladder sludge and/or stones over the course of the past few years. Last night, she developed severe upper abdominal pain and presented to the em ergency room. Laboratory studies were obtained revealing abnormal liver function tests. Her total b ilirubin is 1.4 and this is up from 0.7 a little over a week ago. Her alkaline phosphatase is 252 up from 125. Her transaminases are both significantly elevated with her AFT being 638 up from 38. Gal lbladder ultrasound was obtained revealing evidence of gallbladder stones and sludge with gallbladder wall edema. Secondary to her liver function test abnormality she was admitted to the hospital for p lanned cholecystectomy. She currently notes resolution of her abdominal pain. PAST MEDICAL HISTORY: Essentially unremarkable. PAST SURGICAL HISTORY: She had a section 2 weeks ago. CURRENT MEDICATIONS: She takes no current prescription medications, but recently finished a course o f Bactrim for a urinary tract infection. ALLERGIES: No known drug allergies. PERSONAL/SOCIAL HISTORY: She does not smoke. She drinks alcohol occasionally. She does not work an d she lives with her mother. She is unmarried and this is her first child. REVIEW OF SYSTEMS: Otherwise, unremarkable. FAMILY HISTORY: Noncontributory. PRIMARY CARE PHYSICIAN: None. Her child was delivered through the Clinic. Her baby is act ually currently in the Intensive Care Unit still improving after her recent . PHYSICAL EXAMINATION: VITAL SIGNS: She is afebrile. Vital signs within normal limits. GENERAL: She is a well-nourished, well-developed, pleasant black female resting in bed in no acute d istress. She is alert and oriented x3. Mother is present at bedside. HEENT: Unremarkable. NECK: Supple, without mass or tenderness. LUNGS: Clear to auscultation throughout. CARDIAC: Regular rate and rhythm without murmur. ABDOMEN: Soft, nontender, nondistended. She has no focal tenderness in the right upper quadrant cur rently. EXTREMITIES: Unremarkable. ASSESSMENT: Patient with gallbladder stones and gallbladder sludge with episodes of pain and abnorma l liver function tests. PLAN: I recommend laparoscopic cholecystectomy. I discussed the operation in detail with the patien citlali medrano well as potential risks. She understands and agrees to proceed. The gallbladder ultrasound did reveal a normal caliber common bile duct. Decision whether to obtain a cholangiogram will be made i ntraoperatively depending upon the anatomic appearance. It would seem unlikely that she would truly have choledocholithiasis, with such a small caliber duct.
[2017-12-20] MEDS ORDERED: Ketorolac Tromethamine 30 MG/ML VIAL ONE (15:01)
[2017-12-20] MEDS ORDERED: Iothalamate Meglumine 60% 50 ML VIAL FS ONE (15:05)
[2017-12-20] MEDS ORDERED: Bupivacaine/Epinephrine 0.25% 30 ML VIAL ONE (15:05)
[2017-12-20] MEDS ORDERED: Fentanyl 250 MCG/5 ML VIAL ONE ×2 (15:14→16:38)
[2017-12-20] MEDS ORDERED: Promethazine HCl 25 MG/ML VIAL IM PRN (16:26)
[2017-12-20] MEDS ORDERED: Promethazine HCl 25 MG/ML VIAL SLOW IVP PRN (16:26)
[2017-12-20] MEDS ORDERED: Ondansetron HCl/PF 4 MG/2 ML Vial IVP PRN (16:26)
--- NOTE | 2017-12-20 17:41 | RAD ---
INTRAOPERATIVE CHOLANGIOGRAM: 12/20/17 HISTORY: 27-year-old female with history of laparoscopic cholecystectomy. Two portable fluoroscopic spot films are presented for interpretation. Contrast has been injected into a normal sized common bile duct with emptying into the duodenum. No e vidence for an intraductal calculus. IMPRESSION: Unremarkable post cholecystectomy intraoperative cholangiogram. POS: ANA
[2017-12-20] MEDS ORDERED: HYDROcodone/Acetaminophen 7.5/325 mg Tablet PO PRN ×2 (17:49→17:50)
[2017-12-20 19:06] VITALS: BP 146/99
[2017-12-20 23:58] VITALS: TEMP 98.1
--- NOTE | 2017-12-21 15:45 | OP ---
DATE OF PROCEDURE: 12/21/2017 PREOPERATIVE DIAGNOSIS: Symptomatic cholelithiasis with liver function test elevation. POSTOPERATIVE DIAGNOSIS: Symptomatic cholelithiasis with liver function test elevation. OPERATION PERFORMED: Laparoscopic cholecystectomy with intraoperative cholangiogram (which was negat arthur). SURGEON: Dr. Sage Dillard. ANESTHESIA: General endotracheal. INDICATIONS: The patient is a 27-year-old black female who is 2 weeks . She presented to the emergency room complaining of severe upper abdominal pain. Laboratory studies revealed substanti al elevation of liver function tests. Her ultrasound revealed gallstones and gallbladder sludge, but no evidence of ductal dilatation. I recommended cholangiogram secondary to liver function test elev ation. DESCRIPTION OF PROCEDURE: Informed consent was obtained. The patient was taken to the operating janel m where general endotracheal anesthesia was obtained with the patient in supine position. Abdomen wa s prepped with ChloraPrep and draped in sterile fashion. Local anesthetic was infiltrated and 0.25% Marcaine with epinephrine. An 11 mm infraumbilical incision was created through which a Veress needl e was passed in the peritoneal cavity and pneumoperitoneum established using carbon dioxide up to a p ressure of 15 mmHg. An 11 mm trocar port was passed through this same incision. Laparoscopic camera was passed through this port. Under direct vision, three additional 5 mm right upper quadrant ports were placed. Attention was turned to the gallbladder. This was grasped and retracted in cephalad direction. The infundibulum was grasped and retracted laterally and inferiorly. A careful dissection was carried ou t the apex of the gallbladder to identify the cystic duct and cystic artery. Neither was particularl y inflamed or enlarged. A cholangiogram was obtained after making a ductotomy revealing normal ducta l anatomy and caliber with no evidence of filling defect. The duct was doubly clipped distally and d ivided. The gallbladder was dissected out of the gallbladder fossa using electrocautery. The gallbl adder was removed intact through the umbilicus. The fascia was closed with 0 Vicryl suture using a G Penny needle. The right upper quadrant was irrigated and all irrigant was aspirated. The area was m eticulously hemostatic. All ports and instruments removed under direct vision. Pneumoperitoneum was carefully evacuated. 0.25% Marcaine with epinephrine was infiltrated at each port site. Skin edges approximated with 4-0 Monocryl subcuticular suture. Dermabond was placed externally. There were no complications. The patient tolerated the procedure well and was taken to recovery in stable conditi on.
== END 2017-12-20 23:20 | disposition home or self-care (01) ==
LOC: ERS 13:08 → 3SE 21:30 → 3SW 12-20 19:02
PROVIDERS: ADMIT Specialist; ATTEND Specialist
PROC: 0FT44ZZ Resection of Gallbladder, Percutaneous Endoscopic Approach (ICD-10-PCS; principal; 2017-12-20)
PROC: BF101ZZ Fluoroscopy of Bile Ducts using Low Osmolar Contrast (ICD-10-PCS; 2017-12-20)
DX: K80.10 Calculus of gallbladder with chronic cholecystitis without obstruction (principal); Z98.891 History of uterine scar from previous surgery
CPT/HCPCS: 36415; 47532; 74177; 76705; 80053; 80076; 81003; 81015; 83615; 83690; 84550; 85025; 87086; 88304; 90471; 90682; 96361; 96374; 96375; A4216; G0008; G0378; J0131; J0694; J1885; J2001; J2405; J2704; J3010; Q2036; Q9961

== ENCOUNTER 2018-01-28 17:09 | Emergency (ER) | payer OTHER ==
[2018-01-28 17:53] LABS: Bilirubin Negative (Negative); Blood, Urine Negative (Negative); Clarity CLOUDY (Clear); Glucose, Urine (Dipstick) Negative (Negative); Leukocyte Small (Negative); Nitrite Negative (Negative); Protein, Urine (Dipstick) Negative (Neg-Trace); Specific Gravity, Urine 1.022 (1.002-1.036); Urobilinogen 0.2 mg/dL (0.2-1.0)
[2018-01-28 17:56] LABS: Bacteria/HPF 1+ HPF (None Seen); Hyaline Casts/LPF 0-3 HYALINE CAST LPF (0-3 Hyaline); Pathc Cast-AUWi Flag 0.29 (0-2.49); RBC/HPF 0-3 HPF (0-3); WBC/HPF 0-3 HPF (0-3)
[2018-01-28 17:59] LABS: Pregnancy Test - Urine (BHCG) Negative (Negative); Pregu Control Background? CLEAR/WHITE (CLR/WHITE); Pregu Control Bar Appear? YES (CONTROL BAR); Specific Gravity 1.022 (1.002-1.036)
[2018-01-28 18:08] LABS: #Basophils 0.1 thou/uL (0.0-0.2); #Eosinphils 0.1 thou/uL (0.0-0.7); #Lymphocytes 2.8 thou/uL (1.20-3.40); #Monocytes 0.4 thou/uL (0.11-0.59); #Neutrophils 4.4 thou/uL (1.40-6.50); %Basophils 0.8 % (0.0-1.0); %Eosinophils 1.1 % (0.0-10.0); %Lymphocytes 36.2 % (21.0-51.0); %Monocytes 5.7 % (0.0-10.0); %Neutrophils 56.2 % (42.0-75.0); Mean Corpuscular HGB CONC 32.3 g/dL (32.0-36.0); Mean Corpuscular Hemoglobin 27.9 pg (27.0-31.0); Mean Corpuscular Volume 86.3 fl (81.0-99.0); Mean Platelet Volume 7.7 fL (7.4-10.4); Platelet Count 281 thou/uL (130-400); RBC Distribution Width 14.3 % (11.5-14.5); Red Blood Cell (RBC) Count 4.29 mill/uL (4.20-5.40); White Blood Cell (WBC) Count 7.8 thou/uL (4.8-10.8)
[2018-01-28 18:31] LABS: ALT (SGPT) 12 U/L (8-55); AST (SGOT) 20 U/L (5-34); Albumin 4.1 g/dL (3.5-5.0); Alkaline Phosphatase 83 U/L (40-150); Anion Gap 12 mmol/L (10-20); BUN (Urea Nitrogen) 12 mg/dL (7.0-18.7); Bilirubin, Total 0.4 mg/dL (0.2-1.2); Calc. Creatinine Clearance 0 mL/min (70-130); Calcium 9.7 mg/dL (7.8-10.44); Carbon Dioxide 24 mmol/L (22-29); Chloride 106 mmol/L (98-107); Estimated GFR-MDRD Greater than 90; Globulin 3.3 g/dL (2.4-3.5); Glucose 90 mg/dL (70-105); Potassium 4.1 mmol/L (3.5-5.1); Protein, Total 7.4 g/dL (6.0-8.3); Sodium 138 mmol/L (136-145)
== END 2018-01-28 21:20 | disposition home or self-care (01) ==
LOC: ERS 17:09
DX: S76.912A Strain of unspecified muscles, fascia and tendons at thigh level, left thigh, initial encounter (principal); R10.32 Left lower quadrant pain; E05.90 Thyrotoxicosis, unspecified without thyrotoxic crisis or storm; X58.XXXA Exposure to other specified factors, initial encounter
CPT/HCPCS: 36415; 80053; 81003; 81015; 81025; 85025; 99284

== ENCOUNTER 2018-02-09 21:18 | Emergency (ER) | payer OTHER, SELFPAY ==
[2018-02-09 22:15] LABS: #Basophils 0.1 thou/uL (0.0-0.2); #Eosinphils 0.1 thou/uL (0.0-0.7); #Lymphocytes 3.1 thou/uL (1.20-3.40); #Monocytes 0.5 thou/uL (0.11-0.59); #Neutrophils 5.4 thou/uL (1.40-6.50); %Basophils 0.7 % (0.0-1.0); %Monocytes 5.4 % (0.0-10.0); Hemoglobin 11.8 g/dL (12.0-16.0); Mean Corpuscular HGB CONC 32.7 g/dL (32.0-36.0); Mean Corpuscular Hemoglobin 28.2 pg (27.0-31.0); Platelet Count 272 thou/uL (130-400); RBC Distribution Width 14.8 % (11.5-14.5); Red Blood Cell (RBC) Count 4.19 mill/uL (4.20-5.40); White Blood Cell (WBC) Count 9.2 thou/uL (4.8-10.8)
[2018-02-09 23:32] LABS: Bacteria/HPF None Seen HPF (None Seen); Bilirubin Small (Negative); Blood, Urine Large (Negative); Clarity CLOUDY (Clear); Glucose, Urine (Dipstick) Negative (Negative); Hyaline Casts/LPF 7-10 HYALINE CAST LPF (0-3 Hyaline); Leukocyte Small (Negative); Nitrite Negative (Negative); Pathc Cast-AUWi Flag 2.11 (0-2.49); Protein, Urine (Dipstick) 30 mg/dL (Neg-Trace); RBC/HPF GREATER THAN 50-TNTC HPF (0-3); Specific Gravity, Urine 1.031 (1.002-1.036)
[2018-02-09 23:37] LABS: Pregnancy Test - Urine (BHCG) Negative (Negative); Pregu Control Background? CLEAR/WHITE (CLR/WHITE); Pregu Control Bar Appear? YES (CONTROL BAR); Specific Gravity 1.031 (1.002-1.036)
[2018-02-10] MEDS ORDERED: Acetaminophen 500 MG TAB ONE (00:20)
== END 2018-02-10 00:22 | disposition home or self-care (01) ==
LOC: ERS 21:18
DX: N93.9 Abnormal uterine and vaginal bleeding, unspecified (principal); E05.90 Thyrotoxicosis, unspecified without thyrotoxic crisis or storm
CPT/HCPCS: 36415; 81003; 81015; 81025; 85025; 86900; 86901; 99284

== ENCOUNTER 2018-07-12 14:51 | Emergency (ER) | payer OTHER, SELFPAY ==
[2018-07-12] MEDS ORDERED: Ibuprofen 800 MG TAB ONE (15:49)
[2018-07-12] MEDS ORDERED: Metoclopramide HCl 10 MG TAB ONE (15:50)
== END 2018-07-12 16:00 | disposition home or self-care (01) ==
LOC: ERS 14:51
DX: R51 Headache (principal); E05.90 Thyrotoxicosis, unspecified without thyrotoxic crisis or storm; D64.9 Anemia, unspecified
CPT/HCPCS: 99283

== ENCOUNTER 2018-10-14 10:33 | Emergency (ER) | payer SELFPAY | END 2018-10-14 12:26 | disposition home or self-care (01) | LOC: ERS 10:33 | DX: J06.9 Acute upper respiratory infection, unspecified (principal) | CPT/HCPCS: 99281 ==

== ENCOUNTER 2019-04-25 18:27 | Emergency (ER) | payer SELFPAY ==
[2019-04-25] MEDS ORDERED: Dexamethasone 10 MG/ML VIAL ONE (19:15)
== END 2019-04-25 20:12 | disposition home or self-care (01) ==
LOC: ERS 18:27
DX: J02.9 Acute pharyngitis, unspecified (principal); L30.9 Dermatitis, unspecified; E05.90 Thyrotoxicosis, unspecified without thyrotoxic crisis or storm; D50.9 Iron deficiency anemia, unspecified
CPT/HCPCS: 87081; 87430; 99283; J1100

== ENCOUNTER 2019-06-04 20:24 | Emergency (ER) | payer SELFPAY ==
--- NOTE | 2019-06-04 20:45 | RAD ---
RADIOGRAPH CHEST 1 VIEW: DATE: 06/04/2019 HISTORY: 28-year-old female with chest pain FINDINGS: The visualized lung ansari are clear. The cardiomediastinal silhouette and hilar shadows are normal. The lateral costophrenic angles are sharp. The osseous structures appear normal. There is no pneumothorax. IMPRESSION: Negative.
== END 2019-06-04 21:00 | disposition home or self-care (01) ==
LOC: ERS 20:24
DX: R07.89 Other chest pain (principal); E03.9 Hypothyroidism, unspecified; D50.9 Iron deficiency anemia, unspecified
CPT/HCPCS: 71045; 93005

== ENCOUNTER 2019-08-07 22:20 | Emergency (ER) | payer SELFPAY ==
[2019-08-07 22:50] LABS: Pregnancy Test - Urine (BHCG) Negative (Negative); Pregu Control Background? CLEAR/WHITE (CLR/WHITE); Pregu Control Bar Appear? YES (CONTROL BAR); Specific Gravity 1.032 (1.002-1.036)
[2019-08-07 22:51] LABS: Bilirubin Negative (Negative); Blood, Urine 2+ (Negative); Clarity Clear (Clear); Glucose, Urine (Dipstick) Normal (Negative); Leukocyte Negative Leu/uL (Negative); Mucous/LPF 2+ LPF (<2+); Nitrite Negative (Negative); Protein, Urine (Dipstick) 10 mg/dL (Neg-Trace); Urobilinogen 3 mg/dL (Less than 2)
[2019-08-07 22:56] LABS: Bacteria/HPF 1+ HPF (None Seen)
[2019-08-07 23:39] LABS: #Eosinphils 0.1 thou/uL (0.0-0.7); #Lymphocytes 2.7 thou/uL (1.20-3.40); #Monocytes 0.5 thou/uL (0.11-0.59); #Neutrophils 6.5 thou/uL (1.40-6.50); %Basophils 0.5 % (0.0-1.0); %Eosinophils 1.2 % (0.0-10.0); %Lymphocytes 27.6 % (21.0-51.0); %Monocytes 4.6 % (0.0-10.0); %Neutrophils 66.1 % (42.0-75.0); Hemoglobin 12.7 g/dL (12.0-16.0); Mean Corpuscular HGB CONC 34.3 g/dL (32.0-36.0); Mean Corpuscular Hemoglobin 31.1 pg (27.0-31.0); Mean Corpuscular Volume 90.8 fL (78.0-98.0); Mean Platelet Volume 7.6 fL (7.4-10.4); Platelet Count 250 thou/uL (130-400); RBC Distribution Width 11.7 % (11.5-14.5); Red Blood Cell (RBC) Count 4.09 mill/uL (4.20-5.40); White Blood Cell (WBC) Count 9.8 thou/uL (4.8-10.8)
[2019-08-07 23:59] LABS: ALT (SGPT) 26 U/L (8-55); AST (SGOT) 22 U/L (5-34); Albumin 3.9 g/dL (3.5-5.0); Alkaline Phosphatase 62 U/L (40-110); Anion Gap 12 mmol/L (10-20); BUN (Urea Nitrogen) 15 mg/dL (7.0-18.7); Bilirubin, Total 0.6 mg/dL (0.2-1.2); Calc. Creatinine Clearance 0 mL/min (70-130); Carbon Dioxide 23 mmol/L (22-29); Chloride 108 mmol/L (98-107); Estimated GFR-MDRD Greater than 90; Globulin 3.4 g/dL (2.4-3.5); Glucose 104 mg/dL (70-105); Lipase 27 U/L (8-78); Potassium 3.6 mmol/L (3.5-5.1); Protein, Total 7.3 g/dL (6.0-8.3); Sodium 139 mmol/L (136-145)
== END 2019-08-08 00:26 | disposition home or self-care (01) ==
LOC: ERS 22:20
DX: N12 Tubulo-interstitial nephritis, not specified as acute or chronic (principal)
CPT/HCPCS: 36415; 80053; 81003; 81015; 81025; 83690; 85025; 99284

== ENCOUNTER 2019-08-24 03:21 | Emergency (ER) | payer SELFPAY | END 2019-08-24 03:51 | disposition home or self-care (01) | LOC: ERS 03:21 | DX: N61.1 Abscess of the breast and nipple (principal); E05.90 Thyrotoxicosis, unspecified without thyrotoxic crisis or storm; D50.9 Iron deficiency anemia, unspecified | CPT/HCPCS: 99282 ==

== ENCOUNTER 2019-09-15 09:31 | Emergency (ER) | payer SELFPAY ==
[2019-09-15 10:17] LABS: #Lymphocytes 1.3 thou/uL (1.20-3.40); #Monocytes 0.5 thou/uL (0.11-0.59); #Neutrophils 5.4 thou/uL (1.40-6.50); %Basophils 0.2 % (0.0-1.0); %Eosinophils 0.4 % (0.0-10.0); %Lymphocytes 18.5 % (21.0-51.0); %Monocytes 6.6 % (0.0-10.0); %Neutrophils 74.2 % (42.0-75.0); Hemoglobin 14.8 g/dL (12.0-16.0); Mean Corpuscular HGB CONC 33.4 g/dL (32.0-36.0); Mean Corpuscular Hemoglobin 30.3 pg (27.0-31.0); Mean Corpuscular Volume 90.6 fL (78.0-98.0); Mean Platelet Volume 7.7 fL (7.4-10.4); Platelet Count 250 thou/uL (130-400); RBC Distribution Width 11.7 % (11.5-14.5); White Blood Cell (WBC) Count 7.3 thou/uL (4.8-10.8)
[2019-09-15 10:31] LABS: ALT (SGPT) 49 U/L (8-55); AST (SGOT) 33 U/L (5-34); Albumin 4.4 g/dL (3.5-5.0); Alkaline Phosphatase 73 U/L (40-110); Anion Gap 15 mmol/L (10-20); BUN (Urea Nitrogen) 15 mg/dL (7.0-18.7); Calc. Creatinine Clearance 0 mL/min (70-130); Calcium 9.3 mg/dL (7.8-10.44); Carbon Dioxide 18 mmol/L (22-29); Chloride 109 mmol/L (98-107); Estimated GFR-MDRD 88; Globulin 3.4 g/dL (2.4-3.5); Glucose 99 mg/dL (70-105); Protein, Total 7.8 g/dL (6.0-8.3); Sodium 138 mmol/L (136-145)
[2019-09-15 14:18] LABS: Bilirubin Negative (Negative); Blood, Urine 2+ (Negative); Clarity Turbid (Clear); Glucose, Urine (Dipstick) Normal (Negative); Leukocyte 25 Leu/uL (Negative); Nitrite Negative (Negative); Protein, Urine (Dipstick) 200 mg/dL (Neg-Trace)
[2019-09-15] MEDS ORDERED: Ondansetron PF 4 MG/2 ML Vial ONE (14:25)
[2019-09-15 14:27] LABS: Bacteria/HPF 3+ HPF (None Seen)
== END 2019-09-15 15:23 | disposition home or self-care (01) ==
LOC: ERS 09:31
DX: E86.0 Dehydration (principal); D50.9 Iron deficiency anemia, unspecified; E05.90 Thyrotoxicosis, unspecified without thyrotoxic crisis or storm
CPT/HCPCS: 36415; 80053; 81003; 81015; 85025; 96361; 96374; J2405

== ENCOUNTER 2019-10-27 18:36 | Emergency (ER) | payer SELFPAY ==
--- NOTE | 2019-10-27 20:11 | RAD ---
EXAM: Chest PA and lateral: HISTORY: Chest pain COMPARISON: 05/14/2017 FINDINGS: Heart: Normal cardiac silhouette Aorta: Unremarkable Pulmonary vessels: Normal Costophrenic angles: Costophrenic angles are clear. Lungs: No consolidation or masses. Pneumothorax: No pneumothorax Osseous structures: No osseous abnormalities IMPRESSION: No acute cardiopulmonary process.
[2019-10-27 21:04] LABS: #Basophils 0.2 thou/uL (0.0-0.2); #Eosinphils 0.2 thou/uL (0.0-0.7); #Lymphocytes 3.5 thou/uL (1.20-3.40); #Monocytes 0.5 thou/uL (0.11-0.59); #Neutrophils 5.7 thou/uL (1.40-6.50); %Basophils 1.5 % (0.0-1.0); %Eosinophils 1.5 % (0.0-10.0); %Lymphocytes 35.1 % (21.0-51.0); %Neutrophils 56.9 % (42.0-75.0); Hemoglobin 14.1 g/dL (12.0-16.0); Mean Corpuscular HGB CONC 32.9 g/dL (32.0-36.0); Mean Corpuscular Hemoglobin 29.9 pg (27.0-31.0); Mean Corpuscular Volume 90.9 fL (78.0-98.0); Mean Platelet Volume 7.7 fL (7.4-10.4); Platelet Count 247 thou/uL (130-400); RBC Distribution Width 11.7 % (11.5-14.5); White Blood Cell (WBC) Count 9.9 thou/uL (4.8-10.8)
[2019-10-27 21:26] LABS: ALT (SGPT) 27 U/L (8-55); AST (SGOT) 25 U/L (5-34); Albumin 4.1 g/dL (3.5-5.0); Alkaline Phosphatase 64 U/L (40-110); Anion Gap 13 mmol/L (10-20); BUN (Urea Nitrogen) 12 mg/dL (7.0-18.7); Bilirubin, Total 0.7 mg/dL (0.2-1.2); Calc. Creatinine Clearance 0 mL/min (70-130); Calcium 9.2 mg/dL (7.8-10.44); Carbon Dioxide 22 mmol/L (22-29); Chloride 107 mmol/L (98-107); Estimated GFR-MDRD Greater than 90; Globulin 3.6 g/dL (2.4-3.5); Glucose 80 mg/dL (70-105); Potassium 3.6 mmol/L (3.5-5.1); Protein, Total 7.7 g/dL (6.0-8.3); Sodium 138 mmol/L (136-145)
== END 2019-10-27 22:17 | disposition home or self-care (01) ==
LOC: ERS 18:36
DX: R07.89 Other chest pain (principal); R06.00 Dyspnea, unspecified; E05.90 Thyrotoxicosis, unspecified without thyrotoxic crisis or storm; D50.9 Iron deficiency anemia, unspecified; E66.9 Obesity, unspecified
CPT/HCPCS: 71046; 80053; 84484; 85025; 85379; 93005

== ENCOUNTER 2020-02-28 10:06 | Emergency (ER) | payer SELFPAY | END 2020-02-28 11:00 | disposition home or self-care (01) | LOC: ERS 10:06 | DX: G56.02 Carpal tunnel syndrome, left upper limb (principal) | CPT/HCPCS: 99281 ==

== ENCOUNTER 2020-06-06 10:59 | Emergency (ER) | payer OTHER, SELFPAY ==
[2020-06-07 11:56] LABS: SARS-CoV-2 MS2 Positive; SARS-CoV-2 N Gene Negative; SARS-CoV-2 S Gene Negative; SARS-CoV-2 by NAA Not Detected (NotDetected); SARS-CoV-2 orf1ab Negative
== END 2020-06-06 11:09 | disposition home or self-care (01) ==
LOC: ERS 10:59
DX: R05 Cough (principal); R51 Headache; J02.9 Acute pharyngitis, unspecified; Z20.828 Contact with and (suspected) exposure to other viral communicable diseases; E05.90 Thyrotoxicosis, unspecified without thyrotoxic crisis or storm; D50.9 Iron deficiency anemia, unspecified
CPT/HCPCS: 87635; 99284; U0003

== ENCOUNTER 2020-07-13 17:59 | Emergency (ER) | payer SELFPAY ==
[2020-07-13 19:01] LABS: #Basophils 0.1 thou/uL (0.0-0.2); #Eosinphils 0.1 thou/uL (0.0-0.7); #Lymphocytes 3.5 thou/uL (1.20-3.40); #Monocytes 0.6 thou/uL (0.11-0.59); #Neutrophils 4.6 thou/uL (1.40-6.50); %Eosinophils 1.3 % (0.0-10.0); %Lymphocytes 38.9 % (21.0-51.0); %Monocytes 7.1 % (0.0-10.0); %Neutrophils 51.8 % (42.0-75.0); Hemoglobin 13.2 g/dL (12.0-16.0); Mean Corpuscular HGB CONC 34.3 g/dL (32.0-36.0); Mean Corpuscular Hemoglobin 31.4 pg (27.0-31.0); Mean Corpuscular Volume 91.5 fL (78.0-98.0); Mean Platelet Volume 8.3 fL (7.4-10.4); Platelet Count 217 thou/uL (130-400); RBC Distribution Width 11.4 % (11.5-14.5); Red Blood Cell (RBC) Count 4.19 mill/uL (4.20-5.40); White Blood Cell (WBC) Count 8.9 thou/uL (4.8-10.8)
[2020-07-13 19:07] LABS: Bacteria/HPF 3+ HPF (None Seen); Bilirubin Negative (Negative); Blood, Urine 1+ (Negative); Clarity Clear (Clear); Glucose, Urine (Dipstick) Normal (Negative); Ketone, Urine Negative (Negative); Leukocyte Negative Leu/uL (Negative); Nitrite 2+ (Negative); Protein, Urine (Dipstick) Negative (Neg-Trace); RBC/HPF 0-3 HPF (0-3); Specific Gravity, Urine 1.026 (1.002-1.036); Squamous Epithelial 0-3 HPF (0-3); Urobilinogen Normal mg/dL (Less than 2); WBC/HPF 0-3 HPF (0-3)
[2020-07-13 19:19] LABS: BHCG - Serum Negative (NEGATIVE); Pregs Control Background? CLEAR/WHITE (CLR/WHITE); Pregs Control Bar Appear? YES (CONTROL BAR)
[2020-07-13 19:29] LABS: ALT (SGPT) 22 U/L (8-55); AST (SGOT) 23 U/L (5-34); Albumin 3.8 g/dL (3.5-5.0); Alkaline Phosphatase 56 U/L (40-110); Anion Gap 13 mmol/L (10-20); BUN (Urea Nitrogen) 12 mg/dL (7.0-18.7); Bilirubin, Total 0.3 mg/dL (0.2-1.2); Calc. Creatinine Clearance 0 mL/min (70-130); Carbon Dioxide 21 mmol/L (22-29); Chloride 107 mmol/L (98-107); Estimated GFR-MDRD Greater than 90; Globulin 3.2 g/dL (2.4-3.5); Glucose 93 mg/dL (70-105); Lipase 26 U/L (8-78); Potassium 3.8 mmol/L (3.5-5.1); Sodium 137 mmol/L (136-145)
[2020-07-13] MEDS ORDERED: Ketorolac Tromethamine 30 MG/ML VIAL ONE (19:34)
[2020-07-13] MEDS ORDERED: cefTRIAXone\\ROCEPHIN 1 GM VIAL ONE (19:34)
--- NOTE | 2020-07-13 20:12 | ULT ---
Exam: Transabdominal and endovaginal pelvic ultrasound HISTORY:Left lower quadrant pain COMPARISON: None TECHNIQUE: Transabdominal and endovaginal imaging of the pelvis is performed. Ovaries are interrogate d with grayscale, color flow, Doppler imaging and spectral wave form analysis FINDINGS: Uterus: No myometrial masses. Uterus measurin.1 x 4.9 x 8.4 cm. Endometrium: Homogeneous echotexture. Endometrium diameter: 0.16 cm. . Free fluid: None Right ovary: Normal echotexture Right ovary measurement: 3.3 x 3.0 x 2.6 cm Left ovary: Normal echotexture. Left ovary measurements: 2.5 x 2.7 x 3.1 cm Ovarian Doppler: There is vascular flow to the left and right ovary. IMPRESSION: No acute abnormality in the pelvis.
--- NOTE | 2020-07-13 20:19 | CT ---
Exam: Abdomen CT without contrast Pelvic CT without contrast HISTORY: Left lower quadrant pain. COMPARISON: None FINDINGS: Abdomen CT: Lung bases:Clear Heart size: Normal heart size Aorta: Normal caliber Solid organs: Limited evaluation by the lack of IV contrast. Grossly no solid organ abnormality Lymph nodes: No gastrohepatic, retrocrural or periportal lymphadenopathy Gallbladder: Surgically absent Mesentery: No mass, free air or free fluid. There are few scattered nonspecific lymph nodes in the ri ght lower quadrant mesentery. Kidneys: Bilaterally, no hydronephrosis, nephrolithiasis or perinephric fat stranding. Bilateral uret ers have a normal caliber. No hydroureter, periureteral fat stranding or ureterolithiasis. Alimentary canal: Limited evaluation by the lack of oral contrast. No small bowel obstruction. Normal caliber appendix. There are few scattered diverticula. There is mild pericolonic fat stranding involving the mid to distal descending colon. Possibility of diverticulitis is raised. No abscess or perforation. CT PELVIS: No mass, adenopathy, free air or free fluid. Grossly unremarkable. Urinary bladder: Unremarkable. Osseous structures: No lytic or blastic lesions IMPRESSION: 1. Inflammatory change involving the descending colon. Given scattered diverticula, the possibility o f diverticulitis is raised. No evidence of perforation or abscess. Follow-up colonoscopy when acute inflammation resolved is recommended to exclude other underlying etiologies. 2. Normal caliber appendix.
== END 2020-07-13 21:25 | disposition home or self-care (01) ==
LOC: ERS 17:59
DX: K57.32 Diverticulitis of large intestine without perforation or abscess without bleeding (principal)
CPT/HCPCS: 74176; 76856; 80053; 81003; 81015; 83690; 84703; 85025; 96365; 96366; 96375; J0696; J1885

== ENCOUNTER 2020-09-12 13:26 | Emergency (ER) | payer SELFPAY ==
[2020-09-12 18:09] LABS: SARS-CoV-2 MS2 Positive; SARS-CoV-2 N Gene Negative; SARS-CoV-2 S Gene Negative; SARS-CoV-2 by NAA Not Detected (NotDetected); SARS-CoV-2 orf1ab Negative
== END 2020-09-12 13:45 | disposition home or self-care (01) ==
LOC: ERS 13:26
DX: Z20.828 Contact with and (suspected) exposure to other viral communicable diseases (principal); E05.90 Thyrotoxicosis, unspecified without thyrotoxic crisis or storm; D50.0 Iron deficiency anemia secondary to blood loss (chronic)
CPT/HCPCS: 87635; 99283; U0003

== ENCOUNTER 2020-10-08 12:03 | Emergency (ER) | payer SELFPAY ==
[2020-10-08 12:35] LABS: #Basophils 0.1 thou/uL (0.0-0.2); #Eosinphils 0.1 thou/uL (0.0-0.7); #Lymphocytes 2.6 thou/uL (1.20-3.40); #Monocytes 0.5 thou/uL (0.11-0.59); #Neutrophils 4.1 thou/uL (1.40-6.50); %Basophils 1.2 % (0.0-1.0); %Eosinophils 1.3 % (0.0-10.0); %Lymphocytes 35.1 % (21.0-51.0); %Monocytes 6.1 % (0.0-10.0); %Neutrophils 56.4 % (42.0-75.0); Hemoglobin 13.1 g/dL (12.0-16.0); Mean Corpuscular HGB CONC 33.5 g/dL (32.0-36.0); Mean Corpuscular Hemoglobin 30.7 pg (27.0-31.0); Mean Corpuscular Volume 91.7 fL (78.0-98.0); Mean Platelet Volume 7.9 fL (7.4-10.4); Platelet Count 221 thou/uL (130-400); RBC Distribution Width 11.3 % (11.5-14.5); Red Blood Cell (RBC) Count 4.26 mill/uL (4.20-5.40); White Blood Cell (WBC) Count 7.3 thou/uL (4.8-10.8)
[2020-10-08 12:48] LABS: BHCG - Serum Negative (NEGATIVE); Pregs Control Background? CLEAR/WHITE (CLR/WHITE); Pregs Control Bar Appear? YES (CONTROL BAR)
== END 2020-10-08 13:08 | disposition home or self-care (01) ==
LOC: ERS 12:03
DX: N93.8 Other specified abnormal uterine and vaginal bleeding (principal); E03.9 Hypothyroidism, unspecified; D50.9 Iron deficiency anemia, unspecified
CPT/HCPCS: 36415; 84703; 85025; 86900; 86901; 99284

== ENCOUNTER 2020-11-25 12:26 | Emergency (ER) | payer SELFPAY ==
[2020-11-25 13:27] LABS: #Eosinphils 0.1 thou/uL (0.0-0.7); #Lymphocytes 2.9 thou/uL (1.20-3.40); #Monocytes 0.5 thou/uL (0.11-0.59); #Neutrophils 4.8 thou/uL (1.40-6.50); %Basophils 0.3 % (0.0-1.0); %Eosinophils 0.8 % (0.0-10.0); %Lymphocytes 35.2 % (21.0-51.0); %Monocytes 6.3 % (0.0-10.0); %Neutrophils 57.4 % (42.0-75.0); Hemoglobin 13.7 g/dL (12.0-16.0); Mean Platelet Volume 7.9 fL (7.4-10.4); Platelet Count 238 thou/uL (130-400); RBC Distribution Width 11.4 % (11.5-14.5); Red Blood Cell (RBC) Count 4.54 mill/uL (4.20-5.40); White Blood Cell (WBC) Count 8.3 thou/uL (4.8-10.8)
[2020-11-25 13:42] LABS: Bilirubin Negative (Negative); Blood, Urine 1+ (Negative); Clarity Turbid (Clear); Glucose, Urine (Dipstick) Normal (Negative); Ketone, Urine Negative (Negative); Leukocyte Negative Leu/uL (Negative); Nitrite 2+ (Negative); Protein, Urine (Dipstick) 20 mg/dL (Neg-Trace); RBC/HPF 0-3 HPF (0-3); Specific Gravity, Urine 1.032 (1.002-1.036); Squamous Epithelial 0-3 HPF (0-3); WBC/HPF 0-3 HPF (0-3)
[2020-11-25 13:43] LABS: Bacteria/HPF 3+ HPF (None Seen)
[2020-11-25 13:46] LABS: Pregnancy Test - Urine (BHCG) Negative (Negative); Pregu Control Background? CLEAR/WHITE (CLR/WHITE); Pregu Control Bar Appear? YES (CONTROL BAR); Specific Gravity 1.032 (1.002-1.036)
[2020-11-25 13:52] LABS: ALT (SGPT) 22 U/L (8-55); AST (SGOT) 22 U/L (5-34); Albumin 3.9 g/dL (3.5-5.0); Alkaline Phosphatase 64 U/L (40-110); Anion Gap 13 mmol/L (10-20); BUN (Urea Nitrogen) 11 mg/dL (7.0-18.7); Bilirubin, Total 0.6 mg/dL (0.2-1.2); Calc. Creatinine Clearance 0 mL/min (70-130); Calcium 9.2 mg/dL (7.8-10.44); Carbon Dioxide 22 mmol/L (22-29); Chloride 108 mmol/L (98-107); Globulin 3.6 g/dL (2.4-3.5); Glucose 92 mg/dL (70-105); Potassium 3.8 mmol/L (3.5-5.1); Protein, Total 7.5 g/dL (6.0-8.3); Sodium 139 mmol/L (136-145)
== END 2020-11-25 15:51 | disposition home or self-care (01) ==
LOC: ERS 12:26
DX: N30.00 Acute cystitis without hematuria (principal); E03.9 Hypothyroidism, unspecified; D50.9 Iron deficiency anemia, unspecified
CPT/HCPCS: 80053; 81003; 81015; 81025; 85025; 99284

== ENCOUNTER 2020-12-09 17:53 | Emergency (ER) | payer SELFPAY ==
[2020-12-09 22:28] LABS: SARS-CoV-2 PCR by NAA Not Detected (NotDetected)
== END 2020-12-09 18:40 | disposition home or self-care (01) ==
LOC: ERS 17:53
DX: R50.9 Fever, unspecified (principal); Z20.822 Contact with and (suspected) exposure to COVID-19; E03.9 Hypothyroidism, unspecified; D50.9 Iron deficiency anemia, unspecified
CPT/HCPCS: 87635; 99281; U0003; U0005

== ENCOUNTER 2021-04-04 07:38 | Emergency (ER) | payer OTHER, SELFPAY ==
[2021-04-04 08:16] LABS: #Basophils 0.1 thou/uL (0.0-0.2); #Eosinphils 0.1 thou/uL (0.0-0.7); #Lymphocytes 2.6 thou/uL (1.20-3.40); #Monocytes 0.5 thou/uL (0.11-0.59); #Neutrophils 6.6 thou/uL (1.40-6.50); %Basophils 0.5 % (0.0-1.0); %Eosinophils 1.4 % (0.0-10.0); %Lymphocytes 26.5 % (21.0-51.0); %Monocytes 5.4 % (0.0-10.0); %Neutrophils 66.2 % (42.0-75.0); Hemoglobin 12.9 g/dL (12.0-16.0); Mean Corpuscular HGB CONC 33.7 g/dL (32.0-36.0); Mean Corpuscular Hemoglobin 30.9 pg (27.0-31.0); Mean Corpuscular Volume 91.5 fL (78.0-98.0); Mean Platelet Volume 7.5 fL (7.4-10.4); Platelet Count 267 thou/uL (130-400); RBC Distribution Width 11.7 % (11.5-14.5); Red Blood Cell (RBC) Count 4.19 mill/uL (4.20-5.40)
[2021-04-04 08:18] LABS: BHCG - Serum POSITIVE (NEGATIVE); Pregs Control Background? CLEAR/WHITE (CLR/WHITE); Pregs Control Bar Appear? YES (CONTROL BAR)
[2021-04-04 08:35] LABS: ALT (SGPT) 19 U/L (8-55); AST (SGOT) 20 U/L (5-34); Albumin 3.7 g/dL (3.5-5.0); Alkaline Phosphatase 54 U/L (40-110); Anion Gap 14 mmol/L (10-20); BUN (Urea Nitrogen) 11 mg/dL (7.0-18.7); Bilirubin, Total 0.6 mg/dL (0.2-1.2); Calc. Creatinine Clearance 0 mL/min (70-130); Calcium 9.4 mg/dL (7.8-10.44); Carbon Dioxide 19 mmol/L (22-29); Chloride 105 mmol/L (98-107); Globulin 3.6 g/dL (2.4-3.5); Glucose 90 mg/dL (70-105); Potassium 3.8 mmol/L (3.5-5.1); Protein, Total 7.3 g/dL (6.0-8.3); Sodium 134 mmol/L (136-145)
[2021-04-04 08:53] LABS: Thyroid Stimulating Hormone 1.1181 uIU/mL (0.35-4.94)
== END 2021-04-04 11:45 | disposition home or self-care (01) ==
LOC: ERS 07:38
DX: O20.9 Hemorrhage in early pregnancy, unspecified (principal); O99.281 Endocrine, nutritional and metabolic diseases complicating pregnancy, first trimester; E05.90 Thyrotoxicosis, unspecified without thyrotoxic crisis or storm; O99.011 Anemia complicating pregnancy, first trimester; D50.9 Iron deficiency anemia, unspecified; Z3A.01 Less than 8 weeks gestation of pregnancy
CPT/HCPCS: 36415; 76856; 80053; 84443; 84702; 84703; 85025; 86900; 86901; 93976

== ENCOUNTER 2021-04-13 13:20 | Emergency (ER) | payer OTHER ==
[2021-04-13 13:43] LABS: #Lymphocytes 2.4 thou/uL (1.20-3.40); #Monocytes 0.5 thou/uL (0.11-0.59); #Neutrophils 7.5 thou/uL (1.40-6.50); %Basophils 0.1 % (0.0-1.0); %Eosinophils 0.3 % (0.0-10.0); %Lymphocytes 23.2 % (21.0-51.0); %Neutrophils 71.4 % (42.0-75.0); Hemoglobin 13.9 g/dL (12.0-16.0); Mean Corpuscular Hemoglobin 29.9 pg (27.0-31.0); Mean Corpuscular Volume 90.6 fL (78.0-98.0); Mean Platelet Volume 7.5 fL (7.4-10.4); Platelet Count 260 thou/uL (130-400); RBC Distribution Width 11.8 % (11.5-14.5); Red Blood Cell (RBC) Count 4.67 mill/uL (4.20-5.40); White Blood Cell (WBC) Count 10.4 thou/uL (4.8-10.8)
[2021-04-13 13:59] LABS: ALT (SGPT) 21 U/L (8-55); AST (SGOT) 21 U/L (5-34); Albumin 3.9 g/dL (3.5-5.0); Alkaline Phosphatase 59 U/L (40-110); Anion Gap 16 mmol/L (10-20); BUN (Urea Nitrogen) 8 mg/dL (7.0-18.7); Bilirubin, Total 0.7 mg/dL (0.2-1.2); Calc. Creatinine Clearance 0 mL/min (70-130); Calcium 9.2 mg/dL (7.8-10.44); Carbon Dioxide 19 mmol/L (22-29); Chloride 104 mmol/L (98-107); Globulin 3.8 g/dL (2.4-3.5); Glucose 85 mg/dL (70-105); Potassium 3.8 mmol/L (3.5-5.1); Protein, Total 7.7 g/dL (6.0-8.3); Sodium 135 mmol/L (136-145)
[2021-04-13 14:33] LABS: Bacteria/HPF None Seen HPF (None Seen); Bilirubin Negative (Negative); Blood, Urine 2+ (Negative); Clarity Clear (Clear); Glucose, Urine (Dipstick) Normal (Negative); Ketone, Urine Negative (Negative); Leukocyte Negative Leu/uL (Negative); Nitrite Negative (Negative); Protein, Urine (Dipstick) 30 mg/dL (Neg-Trace); Specific Gravity, Urine 1.031 (1.002-1.036); WBC/HPF 0-3 HPF (0-3)
[2021-04-13] MEDS ORDERED: Metoclopramide HCl 10 MG/2 ML VIAL ONE (15:50)
== END 2021-04-13 17:56 | disposition home or self-care (01) ==
LOC: ERS 13:20
DX: O21.9 Vomiting of pregnancy, unspecified (principal); O99.281 Endocrine, nutritional and metabolic diseases complicating pregnancy, first trimester; O99.011 Anemia complicating pregnancy, first trimester; Z3A.01 Less than 8 weeks gestation of pregnancy
CPT/HCPCS: 36415; 76856; 80053; 81003; 81015; 84702; 85025; 93976; 96365; J2765

== ENCOUNTER 2021-05-18 18:36 | Emergency (ER) | payer OTHER ==
[2021-05-18 19:14] LABS: #Basophils 0.2 thou/uL (0.0-0.2); #Eosinphils 0.1 thou/uL (0.0-0.7); #Lymphocytes 2.2 thou/uL (1.20-3.40); #Monocytes 0.7 thou/uL (0.11-0.59); #Neutrophils 7.4 thou/uL (1.40-6.50); %Basophils 1.5 % (0.0-1.0); %Eosinophils 0.5 % (0.0-10.0); %Lymphocytes 20.8 % (21.0-51.0); %Monocytes 6.5 % (0.0-10.0); %Neutrophils 70.7 % (42.0-75.0); Hemoglobin 13.5 g/dL (12.0-16.0); Mean Corpuscular HGB CONC 34.7 g/dL (32.0-36.0); Mean Corpuscular Hemoglobin 31.4 pg (27.0-31.0); Mean Corpuscular Volume 90.7 fL (78.0-98.0); Mean Platelet Volume 7.7 fL (7.4-10.4); Platelet Count 226 thou/uL (130-400); RBC Distribution Width 11.8 % (11.5-14.5); Red Blood Cell (RBC) Count 4.31 mill/uL (4.20-5.40); White Blood Cell (WBC) Count 10.5 thou/uL (4.8-10.8)
[2021-05-18 20:08] LABS: ALT (SGPT) 108 U/L (8-55); AST (SGOT) 57 U/L (5-34); Albumin 3.6 g/dL (3.5-5.0); Alkaline Phosphatase 55 U/L (40-110); Anion Gap 14 mmol/L (10-20); BUN (Urea Nitrogen) 7 mg/dL (7.0-18.7); Bilirubin, Total 0.6 mg/dL (0.2-1.2); Calc. Creatinine Clearance 0 mL/min (70-130); Calcium 9.1 mg/dL (7.8-10.44); Carbon Dioxide 18 mmol/L (22-29); Chloride 106 mmol/L (98-107); Globulin 3.5 g/dL (2.4-3.5); Glucose 76 mg/dL (70-105); Lipase 24 U/L (8-78); Potassium 3.5 mmol/L (3.5-5.1); Protein, Total 7.1 g/dL (6.0-8.3); Sodium 134 mmol/L (136-145)
[2021-05-18] MEDS ORDERED: Metoclopramide HCl 10 MG/2 ML VIAL ONE (20:13)
[2021-05-18 20:59] LABS: Bilirubin Negative (Negative); Blood, Urine 1+ (Negative); Clarity Turbid (Clear); Glucose, Urine (Dipstick) Normal (Negative); Ketone, Urine Negative (Negative); Leukocyte Negative Leu/uL (Negative); Nitrite Negative (Negative); Protein, Urine (Dipstick) 50 mg/dL (Neg-Trace); Specific Gravity, Urine 1.034 (1.002-1.036)
[2021-05-18 21:10] LABS: Bacteria/HPF 2+ HPF (None Seen); Mucous/LPF 2+ LPF (<2+)
[2021-05-18 22:15] LABS: ALT (SGPT) 99 U/L (8-55); AST (SGOT) 55 U/L (5-34); Albumin 3.2 g/dL (3.5-5.0); Alkaline Phosphatase 48 U/L (40-110); Bilirubin, Direct 0.3 mg/dL (0.1-0.3); Bilirubin, Total 0.6 mg/dL (0.2-1.2); Protein, Total 6.1 g/dL (6.0-8.3)
[2021-05-19 00:13] LABS: HBSAg Index 0.17 S/CO (0-0.99); Hep A IgM AB Non-Reactive (NonReactive); Hep A IgM S/CO 0.16 S/CO (0-0.79); Hep B Surf Ag Non-Reactive S/CO (NonReactive); Hep C IgG Ab Non-Reactive (NonReactive); Hep C Index 0.06 S/CO (0-0.79); Hepatitis B Core IgM Abs Non-Reactive (NonReactive)
== END 2021-05-18 22:45 | disposition home or self-care (01) ==
LOC: ERS 18:36
DX: O21.9 Vomiting of pregnancy, unspecified (principal); O23.41 Unspecified infection of urinary tract in pregnancy, first trimester; O99.281 Endocrine, nutritional and metabolic diseases complicating pregnancy, first trimester; O99.011 Anemia complicating pregnancy, first trimester; Z3A.13 13 weeks gestation of pregnancy
CPT/HCPCS: 36415; 76705; 80053; 80074; 81003; 81015; 83690; 84702; 85025; 87086; 96374; J2765

== ENCOUNTER 2021-12-07 12:23 | Emergency (ER) | payer OTHER ==
[2021-12-07 13:57] LABS: #Eosinphils 0.1 thou/uL (0.0-0.7); #Lymphocytes 2.5 thou/uL (1.20-3.40); #Monocytes 0.3 thou/uL (0.11-0.59); #Neutrophils 5.6 thou/uL (1.40-6.50); %Basophils 0.5 % (0.0-1.0); %Eosinophils 1.1 % (0.0-10.0); %Lymphocytes 29.6 % (21.0-51.0); %Monocytes 3.4 % (0.0-10.0); %Neutrophils 65.6 % (42.0-75.0); Hemoglobin 12.1 g/dL (12.0-16.0); Mean Corpuscular HGB CONC 31.6 g/dL (32.0-36.0); Mean Corpuscular Hemoglobin 29.1 pg (27.0-31.0); Mean Corpuscular Volume 92.3 fL (78.0-98.0); Mean Platelet Volume 7.5 fL (7.4-10.4); Platelet Count 285 thou/uL (130-400); RBC Distribution Width 13.8 % (11.5-14.5); Red Blood Cell (RBC) Count 4.17 mill/uL (4.20-5.40); White Blood Cell (WBC) Count 8.5 thou/uL (4.8-10.8)
[2021-12-07 14:20] LABS: ALT (SGPT) 20 U/L (8-55); AST (SGOT) 19 U/L (5-34); Albumin 4.1 g/dL (3.5-5.0); Alkaline Phosphatase 60 U/L (40-110); Anion Gap 12 mmol/L (10-20); BUN (Urea Nitrogen) 22 mg/dL (7.0-18.7); Bilirubin, Total 0.4 mg/dL (0.2-1.2); Calc. Creatinine Clearance 0 mL/min (70-130); Calcium 9.7 mg/dL (7.8-10.44); Carbon Dioxide 20 mmol/L (22-29); Chloride 110 mmol/L (98-107); Globulin 3.7 g/dL (2.4-3.5); Glucose 83 mg/dL (70-105); Potassium 4.3 mmol/L (3.5-5.1); Protein, Total 7.8 g/dL (6.0-8.3); Sodium 138 mmol/L (136-145)
[2021-12-07 14:22] LABS: BHCG - Serum Negative (NEGATIVE); Pregs Control Background? CLEAR/WHITE (CLR/WHITE); Pregs Control Bar Appear? YES (CONTROL BAR)
== END 2021-12-07 17:23 | disposition home or self-care (01) ==
LOC: ERS 12:23
DX: N93.8 Other specified abnormal uterine and vaginal bleeding (principal); D50.9 Iron deficiency anemia, unspecified; E05.90 Thyrotoxicosis, unspecified without thyrotoxic crisis or storm
CPT/HCPCS: 36415; 80053; 84703; 85025; 86900; 86901; 99284

== ENCOUNTER 2022-03-03 11:16 | Emergency (ER) | payer OTHER ==
[2022-03-03 11:42] LABS: #Basophils 0.1 thou/uL (0.0-0.2); #Eosinphils 0.1 thou/uL (0.0-0.7); #Lymphocytes 1.9 thou/uL (1.20-3.40); #Monocytes 0.3 thou/uL (0.11-0.59); #Neutrophils 5.1 thou/uL (1.40-6.50); %Basophils 0.9 % (0.0-1.0); %Eosinophils 0.8 % (0.0-10.0); %Lymphocytes 25.9 % (21.0-51.0); %Monocytes 4.1 % (0.0-10.0); %Neutrophils 68.4 % (42.0-75.0); Hemoglobin 12.5 g/dL (12.0-16.0); Mean Corpuscular HGB CONC 32.5 g/dL (32.0-36.0); Mean Corpuscular Volume 92.4 fL (78.0-98.0); Mean Platelet Volume 7.4 fL (7.4-10.4); Platelet Count 265 thou/uL (130-400); RBC Distribution Width 12.1 % (11.5-14.5); Red Blood Cell (RBC) Count 4.18 mill/uL (4.20-5.40); White Blood Cell (WBC) Count 7.5 thou/uL (4.8-10.8)
[2022-03-03] MEDS ORDERED: HYDROcodone/Acetaminophen 5/325 mg Tablet ONE (11:48)
[2022-03-03 11:52] LABS: BHCG - Serum Negative (NEGATIVE); Pregs Control Background? CLEAR/WHITE (CLR/WHITE); Pregs Control Bar Appear? YES (CONTROL BAR)
[2022-03-03 12:05] LABS: ALT (SGPT) 40 U/L (8-55); AST (SGOT) 26 U/L (5-34); Albumin 3.8 g/dL (3.5-5.0); Alkaline Phosphatase 56 U/L (40-110); Anion Gap 12 mmol/L (10-20); BUN (Urea Nitrogen) 13 mg/dL (7.0-18.7); Bilirubin, Total 0.7 mg/dL (0.2-1.2); Calc. Creatinine Clearance 0 mL/min (70-130); Calcium 9.2 mg/dL (7.8-10.44); Carbon Dioxide 19 mmol/L (22-29); Chloride 108 mmol/L (98-107); Globulin 3.8 g/dL (2.4-3.5); Glucose 96 mg/dL (70-105); Lipase 19 U/L (8-78); Potassium 3.9 mmol/L (3.5-5.1); Protein, Total 7.6 g/dL (6.0-8.3); Sodium 135 mmol/L (136-145)
[2022-03-03 12:11] LABS: Bacteria/HPF None Seen HPF (None Seen); Bilirubin Negative (Negative); Blood, Urine 1+ (Negative); Clarity Clear (Clear); Glucose, Urine (Dipstick) Normal (Negative); Ketone, Urine Negative (Negative); Leukocyte Negative Leu/uL (Negative); Nitrite Negative (Negative); Protein, Urine (Dipstick) 10 mg/dL (Neg-Trace); Specific Gravity, Urine 1.033 (1.002-1.036); Urobilinogen Normal mg/dL (Less than 2); WBC/HPF 0-3 HPF (0-3)
== END 2022-03-03 14:03 | disposition home or self-care (01) ==
LOC: ERS 11:16
DX: R10.32 Left lower quadrant pain (principal); D50.9 Iron deficiency anemia, unspecified; E05.90 Thyrotoxicosis, unspecified without thyrotoxic crisis or storm
CPT/HCPCS: 36415; 76856; 80053; 81003; 81015; 83690; 84703; 85025; 93976

== ENCOUNTER 2022-09-05 09:17 | Emergency (ER) | payer OTHER, SELFPAY ==
[2022-09-05 12:22] LABS: #Eosinphils 0.1 thou/uL (0.0-0.7); #Monocytes 0.5 thou/uL (0.11-0.59); #Neutrophils 5.9 thou/uL (1.40-6.50); %Basophils 0.4 % (0.0-1.0); %Eosinophils 1.3 % (0.0-10.0); %Lymphocytes 31.4 % (21.0-51.0); %Monocytes 4.9 % (0.0-10.0); Hemoglobin 12.2 g/dL (12.0-16.0); Mean Corpuscular HGB CONC 32.5 g/dL (32.0-36.0); Mean Corpuscular Hemoglobin 29.4 pg (27.0-31.0); Mean Corpuscular Volume 90.4 fl (78.0-98.0); Platelet Count 255 10x3/uL (130-400); RBC Distribution Width 11.6 % (11.5-14.5); Red Blood Cell (RBC) Count 4.15 mill/uL (4.20-5.40); White Blood Cell (WBC) Count 9.5 10x3/uL (4.8-10.8)
[2022-09-05 12:49] LABS: ALT (SGPT) 18 U/L (8-55); AST (SGOT) 17 U/L (5-34); Albumin 3.8 g/dL (3.5-5.0); Alkaline Phosphatase 60 U/L (40-110); Anion Gap 9 mmol/L (10-20); BUN (Urea Nitrogen) 11 mg/dL (7.0-18.7); Bilirubin, Total 0.5 mg/dL (0.2-1.2); Calc. Creatinine Clearance 0 mL/min (70-130); Calcium 8.7 mg/dL (7.8-10.44); Carbon Dioxide 22 mmol/L (22-29); Chloride 110 mmol/L (98-107); Estimated GFR 120; Globulin 2.8 g/dL (2.4-3.5); Glucose 94 mg/dL (70-105); Potassium 3.8 mmol/L (3.5-5.1); Protein, Total 6.6 g/dL (6.0-8.3); Sodium 137 mmol/L (136-145)
== END 2022-09-05 13:55 | disposition home or self-care (01) ==
LOC: ERS 09:17
DX: R06.02 Shortness of breath (principal); E03.9 Hypothyroidism, unspecified
CPT/HCPCS: 36415; 71045; 80053; 84484; 85025; 93005

== ENCOUNTER 2023-07-08 19:34 | Emergency (ER) | payer OTHER, SELFPAY ==
[2023-07-08 20:09] LABS: #Eosinphils 0.2 thou/uL (0.0-0.7); #Monocytes 0.6 thou/uL (0.11-0.59); #Neutrophils 4.8 thou/uL (1.40-6.50); %Basophils 0.2 % (0.0-1.0); %Eosinophils 2.4 % (0.0-10.0); %Monocytes 7.3 % (0.0-10.0); %Neutrophils 54.9 % (42.0-75.0); Hematocrit 35.7 % (36.0-47.0); Hemoglobin 11.8 g/dL (12.0-16.0); Mean Corpuscular HGB CONC 33.1 g/dL (32.0-36.0); Mean Corpuscular Hemoglobin 29.4 pg (27.0-31.0); Mean Platelet Volume 10.2 fL (7.4-10.4); Platelet Count 264 10x3/uL (130-400); RBC Distribution Width 13.3 % (11.5-14.5); Red Blood Cell (RBC) Count 4.01 mill/uL (4.20-5.40); White Blood Cell (WBC) Count 8.7 10x3/uL (4.8-10.8)
[2023-07-08 20:16] LABS: BHCG - Serum POSITIVE (NEGATIVE); Pregs Control Background? CLEAR/WHITE (CLR/WHITE); Pregs Control Bar Appear? YES (CONTROL BAR)
[2023-07-08 20:32] LABS: ALT (SGPT) 26 U/L (8-55); AST (SGOT) 22 U/L (5-34); Albumin 3.8 g/dL (3.5-5.0); Alkaline Phosphatase 57 U/L (40-110); Anion Gap 11 mmol/L (10-20); BUN (Urea Nitrogen) 10 mg/dL (7.0-18.7); Bilirubin, Total 0.3 mg/dL (0.2-1.2); Calc. Creatinine Clearance 0 mL/min (70-130); Calcium 8.9 mg/dL (7.8-10.44); Carbon Dioxide 22 mmol/L (22-29); Chloride 106 mmol/L (98-107); Estimated GFR 92; Globulin 3.1 g/dL (2.4-3.5); Glucose 98 mg/dL (70-105); Lipase 28 U/L (8-78); Potassium 3.2 mmol/L (3.5-5.1); Protein, Total 6.9 g/dL (6.0-8.3); Sodium 136 mmol/L (136-145)
[2023-07-08 21:38] LABS: Bacteria/HPF 4+ HPF (None Seen); Bilirubin Negative (Negative); Blood, Urine 1+ (Negative); CAUTI Indications for Culture Pregnancy; Clarity Clear (Clear); Glucose, Urine (Dipstick) Normal (Negative); Ketone, Urine Trace mg/dL (Negative); Leukocyte Negative Leu/uL (Negative); Mucous/LPF Rare LPF (<2+); Nitrite Negative (Negative); Protein, Urine (Dipstick) 30 mg/dL (Neg-Trace); Specific Gravity, Urine 1.033 (1.002-1.036); Urobilinogen 12 mg/dL (Less than 2); WBC/HPF 0-3 HPF (0-3); pH, Urine 6.5 (5.0-9.0)
[2023-07-08 21:39] LABS: Urine Culture Reflex Yes Yes
[2023-07-08] MEDS ORDERED: Acetaminophen 500 MG TAB ONE (22:22)
== END 2023-07-08 23:13 | disposition home or self-care (01) ==
LOC: ERS 19:34
DX: Z32.01 Encounter for pregnancy test, result positive (principal)
CPT/HCPCS: 36415; 76856; 80053; 81001; 83690; 84702; 84703; 85025; 86850; 86900; 86901; 87077; 87086; 87186

== ENCOUNTER 2023-07-13 23:47 | Emergency (ER) | payer SELFPAY | END 2023-07-14 01:50 | disposition home or self-care (01) | LOC: ERS 23:47 | DX: O20.0 Threatened abortion (principal); Z3A.00 Weeks of gestation of pregnancy not specified | CPT/HCPCS: 36415; 84702; 99284 ==

== ENCOUNTER 2023-07-19 12:54 | Emergency (ER) | payer SELFPAY ==
[2023-07-19 13:48] LABS: #Eosinphils 0.1 thou/uL (0.0-0.7); #Monocytes 0.5 thou/uL (0.11-0.59); %Basophils 0.4 % (0.0-1.0); %Eosinophils 1.2 % (0.0-10.0); %Lymphocytes 30.8 % (21.0-51.0); %Monocytes 5.7 % (0.0-10.0); %Neutrophils 61.7 % (42.0-75.0); Hemoglobin 12.2 g/dL (12.0-16.0); Mean Corpuscular Hemoglobin 29.5 pg (27.0-31.0); Mean Corpuscular Volume 89.4 fl (78.0-98.0); Mean Platelet Volume 10.5 fL (7.4-10.4); Platelet Count 229 10x3/uL (130-400); RBC Distribution Width 13.4 % (11.5-14.5); Red Blood Cell (RBC) Count 4.14 mill/uL (4.20-5.40); White Blood Cell (WBC) Count 8.1 10x3/uL (4.8-10.8)
[2023-07-19 14:12] LABS: ALT (SGPT) 20 U/L (8-55); AST (SGOT) 21 U/L (5-34); Albumin 4.4 g/dL (3.5-5.0); Alkaline Phosphatase 54 U/L (40-110); Anion Gap 13 mmol/L (10-20); BUN (Urea Nitrogen) 13 mg/dL (7.0-18.7); Bilirubin, Total 0.8 mg/dL (0.2-1.2); Calc. Creatinine Clearance 0 mL/min (70-130); Calcium 9.3 mg/dL (7.8-10.44); Carbon Dioxide 21 mmol/L (22-29); Estimated GFR 108; Glucose 80 mg/dL (70-105); Potassium 3.7 mmol/L (3.5-5.1); Protein, Total 7.4 g/dL (6.0-8.3)
[2023-07-19 14:37] LABS: Chloride 108 mmol/L (98-107); Sodium 138 mmol/L (136-145)
== END 2023-07-19 15:23 | disposition home or self-care (01) ==
LOC: ERS 12:54
DX: O26.851 Spotting complicating pregnancy, first trimester (principal); Z3A.01 Less than 8 weeks gestation of pregnancy
CPT/HCPCS: 36415; 76856; 80053; 84702; 85025; 86900; 86901

== ENCOUNTER 2023-08-19 05:12 | Emergency (ER) | payer OTHER, SELFPAY ==
[2023-08-19] MEDS ORDERED: HYDROcodone/Acetaminophen 10/325 mg Tablet ONE (05:33)
== END 2023-08-19 06:27 | disposition home or self-care (01) ==
LOC: ERS 05:12
DX: S39.012A Strain of muscle, fascia and tendon of lower back, initial encounter (principal); S70.01XA Contusion of right hip, initial encounter; W10.9XXA Fall (on) (from) unspecified stairs and steps, initial encounter; Y93.01 Activity, walking, marching and hiking
CPT/HCPCS: 72100; 72170

== ENCOUNTER 2023-09-09 15:19 | Emergency (ER) | payer OTHER | END 2023-09-09 16:10 | disposition home or self-care (01) | LOC: ERS 15:19 | DX: J11.1 Influenza due to unidentified influenza virus with other respiratory manifestations (principal); Z20.822 Contact with and (suspected) exposure to COVID-19 | CPT/HCPCS: 87635; 87804; 99283 ==

== ENCOUNTER 2023-09-21 18:11 | Emergency (ER) | payer OTHER | END 2023-09-21 21:41 | disposition home or self-care (01) | LOC: ERS 18:11 | DX: M79.604 Pain in right leg (principal) ==

== ENCOUNTER 2023-11-11 21:18 | Emergency (ER) | payer OTHER | END 2023-11-11 22:26 | disposition left against medical advice (07) | LOC: ERS 21:18 | DX: Z53.21 Procedure and treatment not carried out due to patient leaving prior to being seen by health care provider (principal) ==

== ENCOUNTER 2023-11-15 18:12 | Emergency (ER) | payer OTHER ==
[2023-11-15 18:35] LABS: Bacteria/HPF None Seen HPF (None Seen); Bilirubin Negative (Negative); Blood, Urine 3+ (Negative); CAUTI Indications for Culture Pelvic or flank pain; Clarity Clear (Clear); Glucose, Urine (Dipstick) Normal (Negative); Ketone, Urine Negative (Negative); Leukocyte Negative Leu/uL (Negative); Mucous/LPF Rare LPF (<2+); Nitrite Negative (Negative); Pregnancy Test - Urine (BHCG) Negative (Negative); Pregu Control Background? CLEAR/WHITE (CLR/WHITE); Pregu Control Bar Appear? YES (CONTROL BAR); Protein, Urine (Dipstick) 10 mg/dL (Neg-Trace); Specific Gravity 1.028 (1.002-1.036); Specific Gravity, Urine 1.028 (1.002-1.036); Squamous Epithelial 0-3 HPF (0-3); WBC/HPF 0-3 HPF (0-3); pH, Urine 6.5 (5.0-9.0)
[2023-11-15 18:57] LABS: Urine Culture Reflex No No
[2023-11-15] MEDS ORDERED: Ketorolac Tromethamine 30 MG (1 mL) VIAL ONE (19:09)
[2023-11-15 20:22] LABS: SARS-CoV-2 NAA Rapid Test Not Detected (NotDetected)
== END 2023-11-15 20:45 | disposition home or self-care (01) ==
LOC: ERS 18:12
DX: B34.9 Viral infection, unspecified (principal)
CPT/HCPCS: 71045; 81001; 81025; 96372; J1885

== ENCOUNTER 2023-12-28 08:14 | Emergency (ER) | payer OTHER ==
[2023-12-28 10:32] LABS: #Eosinphils 0.1 thou/uL (0.0-0.7); #Monocytes 0.4 thou/uL (0.11-0.59); #Neutrophils 6.6 thou/uL (1.40-6.50); %Basophils 0.3 % (0.0-1.0); %Eosinophils 0.5 % (0.0-10.0); %Monocytes 4.3 % (0.0-10.0); %Neutrophils 70.6 % (42.0-75.0); Hematocrit 38.3 % (36.0-47.0); Hemoglobin 12.6 g/dL (12.0-16.0); Mean Corpuscular HGB CONC 32.9 g/dL (32.0-36.0); Mean Corpuscular Hemoglobin 29.3 pg (27.0-31.0); Mean Corpuscular Volume 89.1 fl (78.0-98.0); Mean Platelet Volume 9.8 fL (7.4-10.4); Platelet Count 269 10x3/uL (130-400)
== END 2023-12-28 10:02 | disposition home or self-care (01) ==
LOC: ERS 08:14
DX: O20.0 Threatened abortion (principal); Z3A.01 Less than 8 weeks gestation of pregnancy
CPT/HCPCS: 36415; 84702; 85025; 99284

== ENCOUNTER 2024-02-26 07:12 | Emergency (ER) | payer OTHER ==
[2024-02-26 08:32] LABS: Bilirubin Negative (Negative); Blood, Urine Moderate (Negative); Glucose, Urine (Dipstick) Negative (Negative); Ketone, Urine Negative (Negative); Leukocyte Negative (Negative); Nitrite Negative (Negative); Protein, Urine (Dipstick) Trace mg/dL (Neg-Trace)
[2024-02-26 08:33] LABS: Clarity Slightly Cloudy (Clear)
[2024-02-26 08:34] LABS: Specific Gravity, Urine 1.031 (1.002-1.036)
[2024-02-26 08:36] LABS: Bacteria/HPF 2+ HPF (None Seen); CAUTI Indications for Culture Dysuria,urgency,freq; RBC/HPF 0-3 HPF (0-3); Squamous Epithelial Greater than 50 HPF (0-3); WBC/HPF 0-3 HPF (0-3)
[2024-02-26 08:37] LABS: Other Microscopic Description Less than 2 mL rec'd
[2024-02-26 08:38] LABS: Urine Culture Reflex No No
[2024-02-26 09:21] LABS: #Basophils Less than 0.03 10x3/uL (0.0-0.2); %Basophils 0.2 % (0.0-1.0); %Eosinophils 0.8 % (0.0-10.0); %Lymphocytes 23.5 % (21.0-51.0); %Monocytes 5.7 % (0.0-10.0); %Neutrophils 69.3 % (42.0-75.0); Hemoglobin 12.8 g/dL (12.0-16.0); Mean Corpuscular HGB CONC 33.7 g/dL (32.0-36.0); Mean Platelet Volume 10.6 fL (7.4-10.4); Platelet Count 278 10x3/uL (130-400); RBC Distribution Width 13.2 % (11.5-14.5); Red Blood Cell (RBC) Count 4.27 mill/uL (4.20-5.40)
[2024-02-26 11:17] LABS: ALT (SGPT) 84 U/L (8-55); AST (SGOT) 41 U/L (5-34); Albumin 2.8 g/dL (3.5-5.0); Alkaline Phosphatase 62 U/L (40-110); Anion Gap 14 mmol/L (10-20); BUN (Urea Nitrogen) 10 mg/dL (7.0-18.7); Bilirubin, Total 0.3 mg/dL (0.2-1.2); Calc. Creatinine Clearance 0 mL/min (70-130); Calcium 9.1 mg/dL (7.8-10.44); Carbon Dioxide 16 mmol/L (22-29); Chloride 109 mmol/L (98-107); Estimated GFR 111; Globulin 4.4 g/dL (2.4-3.5); Glucose 72 mg/dL (70-105); Potassium 3.7 mmol/L (3.5-5.1); Protein, Total 7.2 g/dL (6.0-8.3); Sodium 137 mmol/L (136-145)
== END 2024-02-26 12:12 | disposition home or self-care (01) ==
LOC: ERS 07:12
DX: O23.92 Unspecified genitourinary tract infection in pregnancy, second trimester (principal); R82.71 Bacteriuria; Z3A.15 15 weeks gestation of pregnancy
CPT/HCPCS: 36415; 76815; 80053; 81001; 84443; 84702; 85025; 93005; 96360; 96361